=== PATIENT | male | born 1955 | race Caucasian/White ===

== ENCOUNTER 2017-09-29 13:54 | Emergency (ER) | payer SELFPAY ==
[~2017-09-29] VITALS: Ht 190.5 cm; Wt 61.4 kg
[2017-09-29 14:02] VITALS: TEMP 98.1
[2017-09-29] MEDS ORDERED: PRINIVIL2.5 MG PO (14:49)
[2017-09-29] MEDS ORDERED: NEURONTIN600 MG/TAB PO (14:50)
[2017-09-29] MEDS ORDERED: NORCO 325 MG-101 TAB PO (14:50)
[2017-09-29] MEDS ORDERED: TAPAZOLE5 MG PO (14:51)
[2017-09-29] MEDS ORDERED: PERCOCET 325 MG1 TA2 PO (17:25)
[2017-09-29] MEDS ORDERED: CEPHALEXIN500 M1 PO (17:25)
[2017-09-29 17:41] VITALS: BP 129/88; PULSE 72
== END 2017-09-29 17:49 | disposition home or self-care (01) ==
LOC: COL.ER 13:54
DX: S62.300A Unspecified fracture of second metacarpal bone, right hand, initial encounter for closed fracture (principal); S63.270A Dislocation of unspecified interphalangeal joint of right index finger, initial encounter; S61.211A Laceration without foreign body of left index finger without damage to nail, initial encounter; I10 Essential (primary) hypertension; W23.0XXA Caught, crushed, jammed, or pinched between moving objects, initial encounter; Y92.89 Other specified places as the place of occurrence of the external cause
CPT/HCPCS: Q4021; Q4050

== ENCOUNTER 2023-03-03 21:54 | Inpatient (IN) | payer MEDICARE, OTHER ==
[~2023-03-03] VITALS: Ht 185.4 cm; Wt 69.2 kg
[2023-03-03] VITALS (42 sets, daily range): O2SAT 84–100
--- NOTE | 2023-03-03 21:52 | NUR ---
REPORT RECEIVED FROM ARCADIO VELASQUEZ. PATIENT WILL BE TRANSFERRING FROM [facility] VIA EMS, INTUBATED AND ON PROPOFOL.
[~2023-03-03 21:54] MED LIST: CEPHALEXIN500 M1 PO; NORCO 325 MG-101 TAB PO; PERCOCET 325 MG1 TA2 PO; PRINIVIL2.5 MG PO; TAPAZOLE5 MG PO
--- NOTE | 2023-03-03 22:54 | NUR ---
PATIENT ARRIVED IN THE ICU AT 2253. PATIENT WAS SLIGHTLY AGITATED. THIS NURSE STARTED FENTANYL DRIP AND CYNDI [employer]ENN[employer]OT[employer] AGENT INSERTED GARCIA CATHETER. EMS HAD STARTED SECOND INT SITE EN ROUTE. PATIENT HAD DEFICATED IN HIS BRIEF AND WAS CHANGED, ASSESSED AND REPOSITIONED. NIKOLAI HUSSEIN AT BEDSIDE TO PLACE ORDERS, TALK TO FAMILY AND ASSESS PATIENT.
[2023-03-04] VITALS (1115 sets, daily range): BP systolic 79–132; BP diastolic 58–94; PULSE 56–107; TEMP 97.5–98; O2SAT 62–100
[2023-03-04] MEDS ORDERED: PRIL40 PO (00:56)
[2023-03-04] MEDS ORDERED: REGLAN 10MG10 MG/TAB PO (00:56)
[2023-03-04] MEDS ORDERED: LIPITOR 10MG10 MG PO (00:57)
--- NOTE | 2023-03-04 01:02 | NUR ---
PT ARRIVED AT THIS TIME PER EMS. SWITCHED TO VENTILATOR PER CHARTED SETTINGS. NO COMPLICATIONS.
[2023-03-04 01:27] LABS: COLLECTION METHOD CLEAN CATCH
[2023-03-04 01:34] LABS: BASO % 0.2 % (0.0-2.0); EOS % 0.1 % (0.0-4.0); GRAN # 8.8 K/mm3 (1.4-6.5); GRAN % 81.9 % (42.2-75.2); HEMATOCRIT 30.7 % (42.0-52.0); HEMOGLOBIN 10.4 g/dl (13.5-18.0); LYMPH % 9.1 % (20.0-51.0); MEAN CELL VOLUME 109 fl (80.0-100.0); MEAN CORPUSCULAR HEMOGLOBIN 37 pg (27-31); MEAN CORPUSCULAR HGB CONC 34 g/dl (33.0-37.0); MEAN PLATELET VOLUME 10.7 fl (7.4-10.4); MONO # 0.9 K/mm3 (0.1-0.6); MONO % 8.1 % (1.7-9.3); PLATELET COUNT 232 K/mm3 (130-400); RED BLOOD COUNT 2.83 M/mm3 (4.20-5.60); REDCELL DISTRIBUTION WIDTH-CV 14.7 % (11.5-14.5)
[2023-03-04 01:37] LABS: PH 5.5 (5.0-8.5); URINE APPEARANCE Cloudy (CLEAR/HAZY); URINE BLOOD TRACE-INTACT (NEGATIVE); URINE COLOR Amber (YELLOW); URINE GLUCOSE Negative (NEGATIVE); URINE KETONE 1+ (NEGATIVE); URINE NITRATE Positive (NEGATIVE); URINE PROTEIN(semi-quant) TRACE (NEGATIVE)
[2023-03-04 01:44] LABS: AMORPHOUS CRYSTAL Present (NOT PRESENT); URINE BACTERIA Occasional /hpf (NONE SEEN); URINE WBC None Seen /hpf (0-2)
[2023-03-04 01:50] LABS: ALBUMIN 1.4 gm/dL (3.4-4.8); ALKALINE PHOSPHATASE 93 U/L (40-150); ANION GAP 7 mmol/L (7-16); AST,SGOT 37 U/L (5-34); BLOOD UREA NITROGEN 15 mg/dL (8-26); CALCIUM 7.4 mg/dL (8.4-10.2); CARBON DIOXIDE 22 mmol/L (23-31); CHLORIDE 114 mmol/L (98-107); GLUCOSE 126 mg/dL (70-99); MAGNESIUM 1.9 mg/dL (1.6-2.6); PHOSPHOROUS 3.8 mg/dL (2.3-4.7); POTASSIUM 3.5 mmol/L (3.5-4.5); SODIUM 143 mmol/L (136-145)
[2023-03-04 01:57] LABS: ALANINE AMINOTRANSFERASE < 6 U/L (0-55); TROPONIN-I 0.032 ng/mL (0.00-0.033)
[2023-03-04 02:15] LABS: CREATININE, serum 0.84 mg/dL (0.72-1.25)
[2023-03-04] MEDS ORDERED: B COMPLEX #11 TA1 PO (02:45)
[2023-03-04] MEDS ORDERED: VITAMIN D31000 I1 PO (02:46)
[2023-03-04] MEDS ORDERED: ZOFRAN 4MG T4 MG/TAB PO (02:56)
--- NOTE | 2023-03-04 03:20 | NUR ---
@ 0215 advanced ETT FROM TO @ [facility] PER JOVITA SMALL APRN
[2023-03-04 03:28] LABS: ARTERIAL BLOOD GAS BASE EXCESS -1.5 (-2-2); ARTERIAL BLOOD GAS HCO3 21.3 meq/L (22-26); ARTERIAL BLOOD GAS PO2 71.3 mmHg (80-100); ARTERIAL BLOOD GAS pH 7.47 (7.35-7.45)
[2023-03-04 03:29] LABS: ARTERIAL BLD GAS O2 SATURATION 94.7 % (92-100)
--- NOTE | 2023-03-04 05:00 | NUR ---
PATIENT HAS BEEN INTUBATED AND SEDATED FOR LESS THAN 24 HOURS. PATIENT DOES NOT MEET SEDATION VACATION CRITERIA.
[2023-03-04 05:22] LABS: ARTERIAL BLD GAS O2 SATURATION 97.7 % (92-100); ARTERIAL BLD GAS TCO2 CT 22.5; ARTERIAL BLOOD GAS BASE EXCESS -2.2 (-2-2); ARTERIAL BLOOD GAS HCO3 21.5 meq/L (22-26); ARTERIAL BLOOD GAS PO2 104.5 mmHg (80-100); ARTERIAL BLOOD GAS pH 7.43 (7.35-7.45)
--- NOTE | 2023-03-04 06:30 | NUR ---
Report received from ARCADIO Chávez; patient currently resting in bed on ventilator and sedated. Patient has fent and prop running through a peripheral line for sedation, as well as a banana bag and potassium through another peripheral line. Patient has an ET and NG tube in place, as well as a White catheter. No other lines or tubes are in place. Patient is stable and patient's vital signs are within normal limits.
--- NOTE | 2023-03-04 06:59 | NUR ---
68 yo male admitted for further care and management of acute respiratory failure and sepsis of unclear etiology but possibly from a pulmonary source. ht 185.42 cm wt 61.7 kg SCr 0.98 with estimated CrCl ~55 ml/min half life 11.7 hours Plan: Will give an initial loading dose of vancomycin 1250 mg x1 (20.3 mg/kg); followed by a maintenance regimen of vancomycin 1000 mg q12h to target a goal trough of 15-20 mcg/ml. Will follow patient's renal function, micro data, and vancomycin levels as indicated to assess for any necessary changes to the regimen. Thank you for this dosing consult.
--- NOTE | 2023-03-04 09:15 | NUR ---
Patient eyes opened spontaneously with repositioning while working with PT. Squeezed therapists hand on the right but not the left. Patient would not follow any commands for this nurse during the assessment. Tolerating ventilator well and VS stable at this time.
--- NOTE | 2023-03-04 10:35 | NUR ---
SW attempted to contact ROSALIO Wu [phone] due to pt being intabated, did not leave message
--- NOTE | 2023-03-04 13:30 | NUR ---
Dr. Dietz attempted to place a central line in the right jugular. He was unsuccessful and Dr. Aocsta was called to place a line. A left subclavian was placed and position was confirmed via xray. Patient tolerated procedure well. Will continue to monitor.
--- NOTE | 2023-03-04 14:45 | NUR ---
Patient was initiated on levophed at 0.1 mcg/kg/min for hypotension. HR running in the 70's prior to initiation. Within a few minutes HR decreased to the upper 40's. Levophed was placed on standby. HR increased back to basline after stopping levophed. Re-started levophed at 0.01 mcg/kg/min and HR maintained in the 60's. Discussed with Dr. Miller and will keep at this dosage as long as BP tolerates. Will increase dosage if needed per protocol.
--- NOTE | 2023-03-04 17:00 | NUR ---
Sedation vacation not done at this particular time as it was done earlier in the day; patient was able to follow some commands.
--- NOTE | 2023-03-04 22:55 | NUR ---
PATIENT IS TOLERATING THE VENTILATOR WELL AND DOES NOT APPEAR TO BE IN DISTRESS OR DISCOMFORT. NG TUBE PATENT AND ON LOW INTERMITTENT SUCTION. ET TUBE AND GARCIA CATHETAR PATENT, NONVIOLENT RESTRAINTS ENFORCED APPROPRIATELY. PITTING EDEMA NOTED TO EXTREMITIES. PEDAL PULSES REQUIRED DOPPLER TO LOCATE. STAGE 2 PRESSURE WOUND ON RIGHT BUTTOCKS WITH GENERALIZED REDNESS ON COCCYX. BED IN LOW POSITION AND PATIENT IN OBSERVABLE AREA.
[2023-03-05] VITALS (1198 sets, daily range): BP systolic 72–118; BP diastolic 48–77; PULSE 51–84; TEMP 97–98.7; O2SAT 84–100
--- NOTE | 2023-03-05 05:01 | NUR ---
SEDATION BEING WEANED OFF DUE TO WEANING TRIAL.
[2023-03-05 05:38] LABS: BASO % 0.2 % (0.0-2.0); GRAN # 11.8 K/mm3 (1.4-6.5); GRAN % 85.5 % (42.2-75.2); LYMPH # 1.1 K/mm3 (1.2-3.4); LYMPH % 7.7 % (20.0-51.0); MEAN CELL VOLUME 111 fl (80.0-100.0); MEAN CORPUSCULAR HGB CONC 32 g/dl (33.0-37.0); MEAN PLATELET VOLUME 10.8 fl (7.4-10.4); MONO # 0.8 K/mm3 (0.1-0.6); MONO % 5.6 % (1.7-9.3); PLATELET COUNT 284 K/mm3 (130-400); RED BLOOD COUNT 2.41 M/mm3 (4.20-5.60)
[2023-03-05 05:44] LABS: HEMATOCRIT 26.7 % (42.0-52.0); HEMOGLOBIN 8.6 g/dl (13.5-18.0); MEAN CORPUSCULAR HEMOGLOBIN 36 pg (27-31)
[2023-03-05 05:56] LABS: ALBUMIN 1.3 gm/dL (3.4-4.8); ALKALINE PHOSPHATASE 81 U/L (40-150); ANION GAP 7 mmol/L (7-16); AST,SGOT 20 U/L (5-34); BILIRUBIN,TOTAL 1.5 mg/dL (0.2-1.2); BLOOD UREA NITROGEN 19 mg/dL (8-26); CALCIUM 7.1 mg/dL (8.4-10.2); CARBON DIOXIDE 19 mmol/L (23-31); CHLORIDE 114 mmol/L (98-107); CREATININE, serum 0.83 mg/dL (0.72-1.25); GLUCOSE 214 mg/dL (70-99); MAGNESIUM 1.8 mg/dL (1.6-2.6); PHOSPHOROUS 3.7 mg/dL (2.3-4.7); POTASSIUM 4.2 mmol/L (3.5-4.5); SODIUM 140 mmol/L (136-145); TOTAL PROTEIN 4.5 gm/dL (6.2-8.1)
[2023-03-05 06:00] LABS: ALANINE AMINOTRANSFERASE < 6 U/L (0-55)
--- NOTE | 2023-03-05 09:14 | NUR ---
ironworker apprentice called pt's , Skye [phone] due to patient being intubated. Skye provided that they live together in [place]. He sees Dr. De León and obtains medications from [facility] with no difficulties. Pt has a dented walker at home spouse reports and a cane. He was previosuly independent with ADLS, but had increased weakness Skye reports. Pt does not have a DPOA-HC, but Skye would like to complete one. OZZY advised she cannot at this time due to patient being intubated. OZZY provided her number in the event she stops by and he is extubated and can complete a DPOA-HC appropriately. Skye provided her daughter, Lara's number as [phone] to communicate with her when she stops by. Discharge Plan: [facility]
--- NOTE | 2023-03-05 09:29 | NUR ---
INSERTED ETT TO [address] TANNER
[2023-03-05] MEDS ORDERED: PLAVIX 75MG TAB75 MG PO (09:59)
[2023-03-05 10:08] LABS: ARTERIAL BLD GAS O2 SATURATION 98.2 % (92-100); ARTERIAL BLD GAS TCO2 CT 22.2; ARTERIAL BLOOD GAS BASE EXCESS -1.7 (-2-2); ARTERIAL BLOOD GAS HCO3 21.3 meq/L (22-26); ARTERIAL BLOOD GAS PCO2 29.9 mmHg (35-45); ARTERIAL BLOOD GAS PO2 109.9 mmHg (80-100); ARTERIAL BLOOD GAS pH 7.47 (7.35-7.45)
--- NOTE | 2023-03-05 14:44 | NUR ---
UNABLE TO GET TO PT ROOM TO CHECK VENT DUE TO ER PT CARE
--- NOTE | 2023-03-05 15:41 | NUR ---
WHILE APPLYING PT NICOTINE PATCH DAUGHTER STATED HE HAS ALWAYS REFUSED THE NICOTINE PATCH STATES IT MAKES HIM SICK. UPDATED DR. COTTON NICOTINE PATCH DC'D
[2023-03-06] VITALS (1246 sets, daily range): BP systolic 75–131; BP diastolic 47–88; PULSE 53–98; TEMP 97.7–98.9; O2SAT 77–100
--- NOTE | 2023-03-06 04:30 | NUR ---
0430: FENTANYL AND DIPRIVAN TURNED OFF PER ORDER TO ATTEMPT EXTUBATION THIS AM.
--- NOTE | 2023-03-06 05:40 | NUR ---
PT AWAKE AND VISIBLY AGITATED.
[2023-03-06 05:48] LABS: BASO % 0.1 % (0.0-2.0); GRAN % 89.5 % (42.2-75.2); LYMPH # 0.6 K/mm3 (1.2-3.4); LYMPH % 5.4 % (20.0-51.0); MEAN CELL VOLUME 107 fl (80.0-100.0); MEAN CORPUSCULAR HGB CONC 34 g/dl (33.0-37.0); MEAN PLATELET VOLUME 10.5 fl (7.4-10.4); MONO # 0.5 K/mm3 (0.1-0.6); PLATELET COUNT 243 K/mm3 (130-400); RED BLOOD COUNT 2.52 M/mm3 (4.20-5.60); REDCELL DISTRIBUTION WIDTH-CV 14.6 % (11.5-14.5)
[2023-03-06 05:50] LABS: HEMOGLOBIN 9.2 g/dl (13.5-18.0); MEAN CORPUSCULAR HEMOGLOBIN 37 pg (27-31)
[2023-03-06 06:05] LABS: ALBUMIN 1.4 gm/dL (3.4-4.8); BILIRUBIN,TOTAL 1.4 mg/dL (0.2-1.2); CALCIUM 7.3 mg/dL (8.4-10.2); CREATININE, serum 0.75 mg/dL (0.72-1.25); MAGNESIUM 2.1 mg/dL (1.6-2.6); PHOSPHOROUS 2.8 mg/dL (2.3-4.7); POTASSIUM 3.9 mmol/L (3.5-4.5); TOTAL PROTEIN 4.7 gm/dL (6.2-8.1)
--- NOTE | 2023-03-06 06:12 | NUR ---
0615 : PT EXTUBATED TO NONREBREATHER MASK AT 5L AFTER HE GOT A HOLD OF HIS RAMOS AND PULLED ET TUBE TO 21 CM. VSS, SR AT 79, SATS AT 100%, RESP RATE =14. VV=343/85. PT FOLLOWS SIMPLE COMMANDS AND IS DOING WELL. DR OCHOA NOTIFIED AT THIS TIME. GAVE ORDER TO GET ABG AT [id number].
--- NOTE | 2023-03-06 06:23 | NUR ---
ADDENDUM TO 0615 NOTE: SEDATION HAD BEEN OFF SINCE 429 AND PT WAS FOLLOWING SIMPLE COMMANDS.
--- NOTE | 2023-03-06 06:24 | NUR ---
RT CALLED @0601 DUE TO PTT SELF-EXTUBATION. AT ARRIVAL PT HAD ETT CUFF INBETWEEN HIS TEETH WITH RN BAGGING PT, RT ADVISED TO PULL TUBE. PT IS IN NO VISABLE DISTRESS, ABLE TO SPEAK, FRANCISCO WELL ON 5L OXYMASK. PT REFUSED TO RELEASE ETT FROM LEFT HAND, RN AWARE AND DAYSHIFT RT NOTIFED.
--- NOTE | 2023-03-06 07:00 | NUR ---
Bedside report received from ARCADIO Serrano. Pt has been extubated since approx. 0600 and has been tolerating well. Currently on 3L oxymask. Pt alert but not oriented; able to follow commands. LR infusing at 63 ml/hr through left subclavian TLC. FC to dependent drainage. Call light in reach and bed alarm on.
--- NOTE | 2023-03-06 08:45 | NUR ---
Pt incontinent of liquid stool. Complete bed bath given and linens changes. During bath pt became agitated and pulled out NG tube. Dr. Quiroz aware and okay to leave out. Pt alert but not oriented; believes it is 1998. Pt frequently becomes restless and pulls at lines and tubes.
[2023-03-06 09:03] LABS: CLOSTRIDIUM DIFF A/B NEG
[2023-03-06] MEDS ORDERED: NEURONTIN600 MG/TAB PO ×2 (13:25)
[2023-03-06] MEDS ORDERED: ZOFRAN ODT4 MG PO (13:53)
[2023-03-06] MEDS ORDERED: QUALITY CHOICE1 T22 PO (13:54)
--- NOTE | 2023-03-06 14:30 | NUR ---
Request from primary RN to discuss reintubation with patient's & daughter. Patient self-extubated this morning & has now had a rapid decline. Dr. Dietz was called by ARCADIO Jo with orders to reintubate. Patient & his family have made comments about not reintubating, patient stable, so taking time to ensure understanding of patient's condition & order for reintubation. Patient's daughter, Lisette, at bedside. This RN & daughter leave patient room & proceed to consultation room to call patient's , Skye. Updated family on current condition & order for reintubation. Discussed short term aggressive interventions (ventilator) to stabilize the patient. Patient's daughter states that she knows that the patient would not want to be on a long-term ventilator or to have a trach. Discussed what not reintubating would mean for the patient to include . stated that she was "not ready to let him go." Ultimately, the & daughter agreed to move forward with intubation with the hope of recovery, but if unable to wean they would not want a trach/PEG for the patient. Offered to give family some time to talk alone before making a final decision. stated that she needed to return to work & get off the phone while daughter wanted to talk with the patient before reintubation. Daughter proceeds into the room to update her father. Patient states that he does not want reintubated. This RN in room to talk with the patient & daughter. Patient oriented to self, place & president, but not oriented to time. Discussed need for reintubation with patient. Initially, he was reluctant, but his daughter able to convince him to proceed. Daughter requested that we ask the provider about restarting his home pain medication, as the patient has become more anxious without it. Request passed along to ARCADIO Jo. Consent for intubation obtained from daughter at bedside.
--- NOTE | 2023-03-06 14:35 | NUR ---
BECCA RN DISCUSSED WITH PT'S AND DAUGHTER IF THEY WOULD WANT HIM TO BE RE-INTUBATED. INFORMED THAT DR. TANNER IS RECOMMENDING THAT HE BE RE-INTUBATED AT THIS TIME. PT'S AND DAUGHTER ULTIMATELY DECIDED THEY WOULD LIKE PT INTUBATED AGAIN. DR. TANNER AND ANESTHESIA NOTIFIED. CONSENT SIGNED BY PT'S DAUGHTER.
--- NOTE | 2023-03-06 15:00 | NUR ---
1500- Pt being prepped for intubation by this nurse, THANH Lopez, THANH Pennington, and Kathy WHEEL PRESSER. 1505- Induction meds administered by THANH Pennington; propofol, succinylcholine, precedex, and phenylephrine. 1508- 7.5 ETT placed 23cm at the lips; positive color change and bilateral breath sounds verified by this nurse. 1515- Propofol and fentanyl gtt initiated for sedation. 1520- OG tube place 60cm at the lips; clamped. 1558- Bilateral soft wrist restraints placed on pt for line management. 1600- ETT and OG placement verified by x-ray.
[2023-03-06 16:15] LABS: ARTERIAL BLD GAS O2 SATURATION 95.1 % (92-100); ARTERIAL BLD GAS TCO2 CT 20.3; ARTERIAL BLOOD GAS BASE EXCESS -3.7 (-2-2); ARTERIAL BLOOD GAS HCO3 19.4 meq/L (22-26); ARTERIAL BLOOD GAS PCO2 28.9 mmHg (35-45); ARTERIAL BLOOD GAS PO2 76.8 mmHg (80-100); ARTERIAL BLOOD GAS pH 7.45 (7.35-7.45)
--- NOTE | 2023-03-06 17:30 | NUR ---
OG ADVANCED FROM 60CM TO 70CM PER RADIOLOGIST RECOMMENDATION.
--- NOTE | 2023-03-06 20:00 | NUR ---
PT RESTING IN BED IN LOWEST POSITION WITH CALL LIGHT IN REACH. PT ABLE TO OPEN L EYE TO PHYSICAL STIMULATION AND NOTED TO GRIMACE WITH ORAL CARE, BUT UNABLE TO FOLLOW COMMANDS AT THIS TIME. VSS. IV MEDICATIONS INFUSING PER REPORT/ MAR. ALL ASSESSMENTS COMPLETED AND NEEDS ANTICIPATED.
[2023-03-07] VITALS (1100 sets, daily range): BP systolic 87–138; BP diastolic 45–90; PULSE 45–81; TEMP 97.1–98.8; O2SAT 78–100
--- NOTE | 2023-03-07 03:08 | NUR ---
TUBE FEEDING STOPPED AT THIS TIME 4 HOURS PRIOR TO WEANING TRIAL.
--- NOTE | 2023-03-07 05:04 | NUR ---
PT STARTING WEANING TRIAL AT 0700. TITRATING TO DC SEDATION BY 0530.
[2023-03-07 05:31] LABS: ARTERIAL BLD GAS O2 SATURATION 96.6 % (92-100); ARTERIAL BLD GAS TCO2 CT 21.7; ARTERIAL BLOOD GAS BASE EXCESS -2.4 (-2-2); ARTERIAL BLOOD GAS HCO3 20.7 meq/L (22-26); ARTERIAL BLOOD GAS PCO2 30.1 mmHg (35-45); ARTERIAL BLOOD GAS PO2 87.2 mmHg (80-100); ARTERIAL BLOOD GAS pH 7.46 (7.35-7.45)
[2023-03-07 05:54] LABS: BASO % 0.2 % (0.0-2.0); GRAN # 8.1 K/mm3 (1.4-6.5); LYMPH # 0.7 K/mm3 (1.2-3.4); LYMPH % 7.5 % (20.0-51.0); MEAN CELL VOLUME 109 fl (80.0-100.0); MEAN CORPUSCULAR HGB CONC 34 g/dl (33.0-37.0); MEAN PLATELET VOLUME 10.5 fl (7.4-10.4); MONO # 0.6 K/mm3 (0.1-0.6); PLATELET COUNT 230 K/mm3 (130-400); RED BLOOD COUNT 2.35 M/mm3 (4.20-5.60); REDCELL DISTRIBUTION WIDTH-CV 14.8 % (11.5-14.5)
[2023-03-07 05:57] LABS: HEMATOCRIT 25.7 % (42.0-52.0); HEMOGLOBIN 8.6 g/dl (13.5-18.0); MEAN CORPUSCULAR HEMOGLOBIN 37 pg (27-31)
[2023-03-07 06:12] LABS: CALCIUM 7.2 mg/dL (8.4-10.2); CREATININE, serum 0.73 mg/dL (0.72-1.25); MAGNESIUM 2.1 mg/dL (1.6-2.6); POTASSIUM 3.4 mmol/L (3.5-4.5)
--- NOTE | 2023-03-07 10:30 | NUR ---
1030 - Dr. Dietz at patient's bedside talking with patient's , Yaritza. Patient's able to provide a limited medical history on the patient. Dr. Dietz provided a clinical update, diagnostic tests planned for today & consults with rationale. Long discussion on respiratory status & potential need for ventilator with poor prognosis. express understanding, but verbalized that it was a lot of information to take in. 1050 - This RN & patient's proceed to family conference room. Yaritza put her daughter, Kaylen, on video call. RN provided update to daughter with present as discussed at bedside by Dr. Dietz. Discussed potential need for ventilator with poor prognosis & if patient were to be intubated what long-term care would entail (trach likely with LTAC need). & daughter discussed their desire to continue to be aggressive with care & "not give up" referencing that the patient was "a fighter" all of his life. Requested a decision about the choice should the patient decline in respiratory status & both the & daughter agreed that a ventilator is the best option for the patient. Daughter currently lives in [place] & will arrive in [place] late Sunday. All questions answered. Patient's returned to room & echo was in progress, so she was taken to waiting room where she was planning to talk to the daughter. Both tearful; support offered. 1100 - Update provided to RN Shawn Villalobos 1105 - Update provided to Dr. Dietz via phone. Aware of the plan to proceed with ventilator should the patient decline. 1150 - Call to Dr. Connell's office to request recent visit notes & living will. Fax number provided.
--- NOTE | 2023-03-07 19:37 | NUR ---
BEDSIDE REPORT COMPLETED AND IV INFUSIONS AND TUBE FEEDING VERIFIED WITH VENT SETTINGS STATED IN REPORT. PT RESTING AT THIS TIME WITH EYES CLOSED AND VSS. NO NEEDS ANTICIPATED AT THIS TIME.
--- NOTE | 2023-03-07 20:00 | NUR ---
PT RESTING IN BED AND ASSESSMENTS COMPLETED AT THIS TIME. VSS, BED IN LOW POSITION, CALL LIGHT WITHIN REACH, AND RAYMOND CARE COMPLETED WITH LOOSE BM AT THIS TIME WITH STAFF X2. NO ADDITIONAL NEEDS ANTICIPATED AT THIS TIME.
--- NOTE | 2023-03-07 22:52 | NUR ---
RESTRAINT FLOWSHEET NOTED TO BE COMPLETED. CALLED BRAIN ANYI DUNCAN TO CONFIRM ORDER FOR RESTRAINTS REMAINS ACTIVE AT THIS TIME. INTERVENTION CONTINUED.
[2023-03-08] VITALS (1083 sets, daily range): BP systolic 114–148; BP diastolic 63–102; PULSE 47–82; TEMP 97–99; O2SAT 74–100
--- NOTE | 2023-03-08 02:09 | NUR ---
AWAITING RADIOLOGY TO COMPLETE AM CHEST XRAY PRIOR TO FINISHING TITRATING OFF SEDATION AGENTS.
[2023-03-08 06:44] LABS: CALCIUM 7.6 mg/dL (8.4-10.2); CREATININE, serum 0.7 mg/dL (0.72-1.25); POTASSIUM 3.8 mmol/L (3.5-4.5)
--- NOTE | 2023-03-08 06:47 | NUR ---
CPAP TRIAL 5/5 STARTED FOR 1 HOUR THEN ABG. TOLERATING WELL. NIF -[id number]
[2023-03-08 07:07] LABS: ARTERIAL BLD GAS O2 SATURATION 96.8 % (92-100); ARTERIAL BLD GAS TCO2 CT 19.3; ARTERIAL BLOOD GAS BASE EXCESS -3.9 (-2-2); ARTERIAL BLOOD GAS HCO3 18.5 meq/L (22-26); ARTERIAL BLOOD GAS PCO2 25.7 mmHg (35-45); ARTERIAL BLOOD GAS PO2 86.4 mmHg (80-100); ARTERIAL BLOOD GAS pH 7.48 (7.35-7.45)
--- NOTE | 2023-03-08 18:52 | NUR ---
0900 PT EXTUBATION SUCCESSFUL PT TOLERATED WELL. PT PLACED ON 5L OXYMASK. 1200 PT TOLERATING BEING OFF VENT. PT PLACED ON 3L NC. BEDSIDE SWALLOW TEST DONE AT THIS TIME WITH THIN FLUIDS PT TOLERATED WITHOUT TROUBLE OR COUGHING. PO MEDICATIONS ADMINISTERED PT ABLE TO TAKE WHOLE WITHOUT ISUUES.
--- NOTE | 2023-03-08 19:00 | NUR ---
BEDSIDE REPORT RECEIVED FROM ARCADIO ALEJANDRE. PATIENT RESTING IN BED WITH CALL LIGHT IN HAND, BED IN LOW POSITION, AND ALL QUESTIONS ANSWERED AT THIS TIME. VSS AND NO NEEDS VOICED OR ANTICIPATED AT THIS TIME.
--- NOTE | 2023-03-08 20:00 | NUR ---
PT RESTING IN BED WITH CALL LIGHT IN HAND. REPORTS PAIN OF 1 TO TIP OF PENIS AND REPORTS IT IS A BURN/ STING. EDUCATED THAT GARCIA CATHETERS CAN CAUSE DISCOMFORT. TOPICAL PAIN MEDS TO BE ADMINISTERED PER MAY. ASSESSMENTS COMPLETED AT THIS TIME. PT ORIENTED TO PERSON, PLACE, SITUATION TO HOSPITAL/ LOCATION BUT REORIENTATION FOR PLAN AND CARES, AND UNABLE TO STATE DATE AT THIS TIME. BED IN LOW POSITION, CARE PLAN REVIEWED, AND ALL QUESTIONS ANSWERED AT THIS TIME. PT REMINDED AND ENCOURAGED TO USE CALL LIGHT FOR ANY NEEDS.
[2023-03-09] VITALS (522 sets, daily range): BP systolic 126–162; BP diastolic 75–97; PULSE 66–98; TEMP 97.5–100.3; O2SAT 78–100
[2023-03-09 05:02] LABS: CALCIUM 7.6 mg/dL (8.4-10.2); CREATININE, serum 0.73 mg/dL (0.72-1.25); POTASSIUM 3.4 mmol/L (3.5-4.5)
--- NOTE | 2023-03-09 09:01 | NUR ---
RECEIVED REPORT FROM NIGHTSHIFT RNITALO. PATIENT RESTING IN BED WITH EYES CLOSED AT THIS TIME. BED IN A LOW POSITION. CALL LIGHT WITHIN REACH.
--- NOTE | 2023-03-09 09:04 | NUR ---
HEAD TO TOE ASSESSMENT COMPLETED. PATIENT IS ALERT AND ORIENTED IN BED. ABLE TO TAKE MEDICATIONS WITH SIPS OF WATER WITHOUT A PROBLEM. PUPILS EQUAL AND REACTIVE. HEART SOUNDS REGULAR WITH S1 AND S2 NOTED. LUNG SOUNDS DIMINISHED BILATERALLY IN UPPER AND LOWER LOBES. BOWEL SOUNDS ACTIVE IN ALL QUADRANTS. PATIENT HAS GARCIA AND RECTAL TUBE IN PLACE. PATIENT HAS PITTING EDEMA BILATERALLY TO UPPER AND LOWER EXTREMITIES. PEDAL PULSES AUDIBLE WITH DOPPLER. RADIAL PULSES PALPABLE. PATIENT HAS STAGE II SKIN ULCER TO COCCYX. MEPILEX DRESSING CHANGED D/T SOILING. BREAKFAST TRAY ORDERED FOR PATIENT. BED IN A LOW POSITION. CALL LIGHT WITHIN REACH.
--- NOTE | 2023-03-09 10:40 | NUR ---
REPORT RECEIVED FROM ARCADIO GAMBINO IN ICU AT 1025 AND PT ON THE FLOOR APPROX 1040. PTS DAUGHTER AT BEDSIDE. PT ON 2L OXYMASK, HAS A GARCIA IN PLACE DRAINING RABIA URINE, AND A RECTAL TUBE WITH A MODERATE AMOUNT ON LIQUID STOOL IN BAG. DURING REPORT ICU NURSE NOTIFIED THIS NURSE THAT RECTAL TUBE "LEAKS". RECTAL TUBE ADVANCED SLIGHTLY FURTHER INTO PTS RECTUM AND 10MLS ADDED TO BALLON. PT IS A&OX4 AND DENIES PAIN OR SHORTNESS OF BREATH AT THIS TIME. PER REPORT 0900 GABAPENTIN NOT GIVEN DUE TO IT NOT BEING STOCKED IN ICU. PT HAS +3 PITTING EDEMA TO BILATERAL LOWER EXTREMITIES AND +1 PITTING TO UPPER EXTREMITIES. PT HAS A TRIPLE LUMEN SUBCALVIAN IJ IN PLACE, ALL 3 LUMENS FLUSH WELL WITH BLOOD RETURN. NORMAL SALINE CONNECTED AND BROUGHT UP FROM ICU. PT HAS A STAGE 2 PRESSURE INJURY TO COCCY THAT APPEARS TO BE IN A STAGE OF HEALING, SKIN ISNT INTACT. PT CLEANED, BARRIER CREAM AND MEPILEX REPLACED. PTS HANDS ARE COLD AND SPO2 READING AT 82-85% ON 2L OXYMASK, OXUGEN INCREASED TO 4L OXYMASK AND PT NOT GETTING OVER 90%. RESPIRATORY CALLED AND PT PLACED ON BIPAP. PT REPORTS DISCOMFORT WITH GARCIA AND TOPICAL LIDOCAINE OINTMENT APPLIED. PT DENIES NEEDS AT THIS TIME. BED IN LOWEST POSITION, CALL LIGHT IN REACH, BED ALARM ON
--- NOTE | 2023-03-09 11:00 | NUR ---
PT OFFERED LUNCH AND DENIES WANTING ANYHTING. THIS NURSE NOTIFIED PT OF [employer] ON THE FLOOR AND REQUESTING CHOCOLATE PUDDING AND JELLO. FOOD AT BEDSIDE AND DAUGHTER ASSISTING WITH EATING
--- NOTE | 2023-03-09 11:07 | NUR ---
REPORT GIVEN TO BILLIE MEDICAL RN VIA PHONE AT 1022. PATIENT TRANSPORTED UP TO MEDICAL FLOOR VIA WHEELCHAIR TO ROOM 353 AT 1040.
--- NOTE | 2023-03-09 12:00 | NUR ---
DAUGHTER ASKING IF PT STILL NEEDS TO BE ON OXYMASK. BIPAP REMOVED AND PT PLACED ON 6L OXYMASK. SPO2 MONITOR PLACED ON PTS LEFT EAR AND READING 100% AT THIS TIME. OXYGEN TITRATED TO 3L AND PTS O2 STATS 95%. PT DENIES NEEDS AT THIS TIME.
--- NOTE | 2023-03-09 17:00 | NUR ---
PT OFFERED DINNER AND DENIES WANTING ANYTHING BUT CHOCOALTE ENSURES. ORDER PLACED
[2023-03-10] VITALS (8 sets, daily range): BP systolic 127–154; BP diastolic 69–96; PULSE 80–103; TEMP 97.4–99
[2023-03-10 08:19] LABS: CALCIUM 7.9 mg/dL (8.4-10.2); CREATININE, serum 0.7 mg/dL (0.72-1.25); POTASSIUM 3.6 mmol/L (3.5-4.5)
--- NOTE | 2023-03-10 08:30 | NUR ---
PT RESTING IN BED UPON ENTERING. ASSESSMENT DONE, PT DENIES PAIN AT THIS TIME. PT ON 6L OXYMASK AND DENIES SHORTNESS OF BREATH AT THIS TIME, O2 SATS 95%. GARCIA IN PLAC DRAINING RABIA URINE WITHOUT ISSUES. RECTAL TUBE IN PLACE BUT LEAKING. TUBE ADVANCED INTO PTS RECTUM AND PT REPOSITIONED. RECTAL TUBE BAG EMPTIED AND CHANGED. PT HAS A STAGE 2 COCCYX PRESSURE INJURY, SURROUNDING SKIN IN REDDENED WITH A SMALL AREA OF SKIN NOT INTACT. PT CLEANED, BARRIER CREAM AND MEPILEX APPLIED. LR RUNNING AT 63MLS/HR PER ORDER. PT HAS +3 BILATERAL LOWER EXTREMITY EDEMA, SKIN IS TAUT AND HAS A SHINY APPEARANCE, SKIN IS INTACT ON LEGS. PT HAS +2 BIALTERAL UPPER EXTREMITY EDEMA CONCENTRATED AROUND FORARMS. PTS SCROTUM IS SWOLLEN, PT DENEIS PAIN. PT DENIES BREAKFAST AND STATES THAT HE WILL WAIT FOR HIS FAMILY TO COME. BED IN LOWEST POSITION, CALL LIGHT IN REACH, BED ALARM ON
--- NOTE | 2023-03-10 12:19 | NUR ---
Data: Line Mover visit attempted during Line Mover rounds. Assessment: Patient declined Line Mover visit. Plan of Care: No Line Mover visit completed at this time. Chaplains will remain available to Patient if requested.
--- NOTE | 2023-03-10 15:00 | NUR ---
PTS FAMILY AT BEDSIDE ASKING IF IT WOULD BE OKAY TO ATTEMPT TO STAND OR AMBUALTE PT. PT STATING "I WANT TO TRY TO STAND". EARLY THIS AM PHYSICAL THERAPY AT BEDSIDE DOING IN BED EXERCISES ONLY DUE TO PT REFUSING AMBULATION AFTER BEING TIRED WITH IN BED EXERCISES. THIS NURSE NOTIFIED FAMILY THAT PT HAS NOT BEEN UP WITH PHYSICAL THERAPY TODAY DUE TO BEING WEAK. THIS NURSE NOTIFIED FAMILY OF NURSING STAFFS UNCOMFORT WITH ATTEMPTING TO STAND PT WHEN PT WAS NOT ABLE TO WITH PHYSICAL THERPAY, PT HASNT BEEN AMBUALTED SINCE LEAVING ICU, GARCIA AND RECTAL TUBE IN PLACE. FAMLILY NOTIFIED THAT THIS NURSE IS NOT COMFORTABLE WITH BEING THE FIRST PERSON TO GET PT UP WITH ALL THE EQUIPTMETN HE HAS IN ADDITION TO WEAKNESS. FAMILY VERBALIZED UNDERSTANDING.
--- NOTE | 2023-03-10 16:30 | NUR ---
UPON ENTERING TO START ZOSYN THIS NURSE NOTICED AND INCREASE IN PTS BILATERAL UPPER EXTREMITY SWELLING AND SCROTUM SWELLING. DR LUA CALLED AND NOTIFIED. PROVIDER ASKED THIS NURSE IF PT IS TAKING ENOUGH FLUIDS ORALLY AND THIS NURSE STATED THAT THE PT HAS BEEN DOING WELL WITH FLUIDS DO TO MED PASSES AND ENCOURAGEMENT. PROVIDER TOLD THIS NURSE TO HOLD FLUIDS AND CONTINUE WITH ORDERED ABX. PTS LUNG SOUNDS STILL DIMINSHED LIKE MORNING ASSESSMENT, NO CRACKELS OR NEW SOUNDS HEARD AT THIS TIME. PT DENIES PAIN OR SHORTNESS OF BREATH AT THIS TIME.
--- NOTE | 2023-03-10 21:00 | NUR ---
Patient resting in bed. Denies any pain or needs at this time. Assessment complete. IV fluses easily with good blood return in all 3 ports. Call light and personal items in reach. Bed in low position and bed alarm on.
[2023-03-10 21:17] LABS: CLOSTRIDIUM DIFF A/B NEG
[2023-03-11] VITALS (10 sets, daily range): BP systolic 134–150; BP diastolic 71–94; PULSE 86–90; TEMP 97.9–98.3
--- NOTE | 2023-03-11 05:40 | NUR ---
Patient resting in bed. Denies any pain at rest or needs at this time. Patient cleaned and repositioned. Call light and personal items in reach. Bed in low position and bed alarm on.
--- NOTE | 2023-03-11 08:00 | NUR ---
Patient is resting in bed, alert and oriented, daughter at the bedside, complains pain while repositioning. Assessment completed, tele in place, SR, No further needs at this time. Call light within reach.
--- NOTE | 2023-03-11 20:30 | NUR ---
Initial shift assessment done-denies pain, states doesnt want to take any more pills- explained what that where all for and did decide to take them with much encouragement, incontinent of loose/brown stool, cleaned up/repositioned, o2 at 6L/oxymask, HOB up, Tele on, has TLC cathter to left chest.
[2023-03-12] VITALS (13 sets, daily range): BP systolic 135–149; BP diastolic 70–87; PULSE 68–93; TEMP 97.1–98.4
--- NOTE | 2023-03-12 05:49 | NUR ---
No changes--very pleasant, VSS, Did have 3 loose/liquid stools this shift- cleaned up/repositioned/barrier cream applied.
[2023-03-12 08:16] LABS: ALBUMIN 1.3 gm/dL (3.4-4.8); BILIRUBIN,TOTAL 1.1 mg/dL (0.2-1.2); CALCIUM 8.1 mg/dL (8.4-10.2); CREATININE, serum 0.63 mg/dL (0.72-1.25); MAGNESIUM 1.8 mg/dL (1.6-2.6); PHOSPHOROUS 2.9 mg/dL (2.3-4.7); POTASSIUM 3.7 mmol/L (3.5-4.5); TOTAL PROTEIN 4.9 gm/dL (6.2-8.1)
--- NOTE | 2023-03-12 20:30 | NUR ---
Initial shift assessment done-- VSS, o2 at 8L/oxymask, alert/oriented x4, states brought him some [employer] for supper- was happy about that, refusing any snacks at this time, repositioned in bed, cleaned up of some incontinent stool- unable to get a specimen-- states will try to use the bedpan next time so we can get the specimen,,, did void 200cc marija urine per urinal.
[2023-03-13] VITALS (15 sets, daily range): BP systolic 90–142; BP diastolic 67–90; PULSE 85–136; TEMP 97.6–98.7
--- NOTE | 2023-03-13 02:45 | NUR ---
Pt called saying he felt SOB, resp 28/min, sats on 8L/oxymask 92%- resp called- will come and give treatment and assess.
--- NOTE | 2023-03-13 02:55 | NUR ---
Pt very SOB, getting 62% o2 sats 0n the 8L/oxymask, resp now here- CAT called, Brian PLASCENCIA called- coming stat
--- NOTE | 2023-03-13 03:00 | NUR ---
Brian urrutai at bedside- nurse workers' compensation claims supervisor here- resp here- orders for stat CXR, Bipap on- sats already coming up to 80% after 2-3 minutes
--- NOTE | 2023-03-13 03:15 | NUR ---
Orders for ABG,s, CXR, Bipap, Lasix 80mg IV, Metoprolol 2.5mg,potassium 40 meq, and magnesium sulfate -- pt feeling much better- vss,,97.6, 120/70, 98,20, 99 % on Bipap
[2023-03-13 03:20] LABS: ARTERIAL BLD GAS O2 SATURATION 97.5 % (92-100); ARTERIAL BLD GAS TCO2 CT 20.7; ARTERIAL BLOOD GAS BASE EXCESS -4.6 (-2-2); ARTERIAL BLOOD GAS HCO3 19.6 meq/L (22-26); ARTERIAL BLOOD GAS PCO2 33.2 mmHg (35-45); ARTERIAL BLOOD GAS PO2 101.1 mmHg (80-100); ARTERIAL BLOOD GAS pH 7.39 (7.35-7.45)
--- NOTE | 2023-03-13 06:23 | NUR ---
States feeling so so much better, VSS, did use urinal and voided 600cc clear yellow urine. remains on Bipap at fio2 85% with sats 99%
[2023-03-13 15:44] LABS: PERITONEAL -POLYMORPHONUCLEAR 81.2 % (0-25)
--- NOTE | 2023-03-13 17:04 | NUR ---
apartment maintenance worker spoke with spouse, Skye [phone] and Lisette gaxiola [phone] as they desire patient to transfer to a skilled care facility prior to patient staying with daughter. Skye and Lisette prefer [facility] [place] swing bed and/or [facility]. Skye does not want [facility] swing bed. Discharge plan: Swing bed or [facility] facility.
--- NOTE | 2023-03-13 19:30 | NUR ---
Patient resting in bed with family at bedside . Denies any pain at this time. Patient cleaned and turned. Assessment complete. Triple lumen in left subclavian flushes easily with good blood return from all ports. Call light and personal items in reach. Bed in low position and bed alarm on.
--- NOTE | 2023-03-13 19:59 | NUR ---
Patient remains stable. Has rested throughout day, arouses to voice and touch. Appetite low, drank a boost drink brought by daughter. Tolerating medications well. Patient's SpO2 noted to decrease below 90% by the time he is done taking medications with BiPAP off. Once BiPAP placed back on it increases to 95%. Patient denies increase in pain. Currently in bed with call light in reach and family at bedside.
--- NOTE | 2023-03-13 23:00 | NUR ---
Patient states he feels SOB with bipap on and keeps taking it off. Oxygen stating from 82-88% with bipap hovering over his mouth. Respiratory contacted and notified. Hospitalist ANYI Enciso contacted and updated on the patients situation. States she will come and see him. Chest X-ray and ABGs ordered.
[2023-03-13 23:36] LABS: ARTERIAL BLD GAS O2 SATURATION 84.8 % (92-100); ARTERIAL BLD GAS TCO2 CT 19.1; ARTERIAL BLOOD GAS BASE EXCESS -4.8 (-2-2); ARTERIAL BLOOD GAS HCO3 18.3 meq/L (22-26); ARTERIAL BLOOD GAS PCO2 27.4 mmHg (35-45); ARTERIAL BLOOD GAS PO2 50.7 mmHg (80-100); ARTERIAL BLOOD GAS pH 7.44 (7.35-7.45)
[2023-03-14] VITALS (1053 sets, daily range): BP systolic 74–1008; BP diastolic 51–92; PULSE 61–144; TEMP 95.9–99.9; O2SAT 54–100
--- NOTE | 2023-03-14 | NUR ---
Patient now on Arivo 60L and stating mid 90s. Transfering patient to ICU after chest CT and EKG
--- NOTE | 2023-03-14 00:32 | NUR ---
Called report to ARCADIO Miranda in ICU. Notified we will take him to CT then to ICU floor.
--- NOTE | 2023-03-14 00:45 | NUR ---
Patient taken to CT then to ICU with all patient belongings. Patient transferred on 15L using oxymask.
--- NOTE | 2023-03-14 01:07 | NUR ---
PATIENT ARRIVED VIA MEDICAL BED WITH MEDICAL RN AND ASSISTANT DIRECTOR OF ADMISSIONS. PATIENT IN ACUTE DISTRESS UPON ARRIVAL. ON 15 L OF O2 - INITIAL SPO2 WAS 58% UPON ARRIVAL TO THE UNIT. AIRVO PLACED IMMEDIATELY BY RT.
[2023-03-14 01:56] LABS: HEMATOCRIT 27.3 % (42.0-52.0); HEMOGLOBIN 8.7 g/dl (13.5-18.0); MEAN CELL VOLUME 111 fl (80.0-100.0); MEAN CORPUSCULAR HEMOGLOBIN 35 pg (27-31); MEAN CORPUSCULAR HGB CONC 32 g/dl (33.0-37.0); MEAN PLATELET VOLUME 10.4 fl (7.4-10.4); PLATELET COUNT 392 K/mm3 (130-400); RED BLOOD COUNT 2.47 M/mm3 (4.20-5.60); REDCELL DISTRIBUTION WIDTH-CV 14.8 % (11.5-14.5)
[2023-03-14 02:03] LABS: INR 1.5 (0.8-3.0); PROTHROMBIN TIME 16.3 SECONDS (9.7-12.8)
[2023-03-14 02:05] LABS: PARTIAL THROMBOPLASTIN TIME 26.6 SECONDS (26.0-37.0)
[2023-03-14 02:22] LABS: BAND 4 % (0-10); LYMPHOCYTE 3 % (20.0-51.0); NEUTROPHILS 91 % (42.0-75.2)
[2023-03-14 02:23] LABS: PLATELET ESTIMATE NORMAL (NORMAL)
[2023-03-14 02:24] LABS: CALCIUM 8.5 mg/dL (8.4-10.2); CREATININE, serum 0.77 mg/dL (0.72-1.25); POTASSIUM 4.1 mmol/L (3.5-4.5)
[2023-03-14 02:26] LABS: ARTERIAL BLD GAS O2 SATURATION 76.6 % (92-100); ARTERIAL BLD GAS TCO2 CT 20.4; ARTERIAL BLOOD GAS BASE EXCESS -6.4 (-2-2); ARTERIAL BLOOD GAS HCO3 19.2 meq/L (22-26); ARTERIAL BLOOD GAS PCO2 38.5 mmHg (35-45); ARTERIAL BLOOD GAS PO2 47.4 mmHg (80-100); ARTERIAL BLOOD GAS pH 7.32 (7.35-7.45)
--- NOTE | 2023-03-14 02:28 | NUR ---
Vancomycin Initial Dosing Pharmacy Note Ordering provider: Jose Quiroz MD Indication/duration: RLL infiltrate x 7 days. Relevant comorbidities: N/A LABS: SCr = 0.63 (Capped at 0.8) Recommendation: Will draw troughs and follow levels. Loading dose: 1.5 grams Maintenance dose: 1.25 grams every 12 hours Trough goal: 15-20 ug/mL
[2023-03-14 02:32] LABS: TROPONIN-I 0.517 ng/mL (0.00-0.033)
--- NOTE | 2023-03-14 05:03 | NUR ---
AT ABOUT 0230, PATIENT BEGAN DESATTING SIGNIFICANTLY EVEN WITH AIRVO AND BIPAP ATTEMPTS. PATIENT WENT INTO SVT MULTIPLE TIMES WHILE PROVIDER WAS AT BEDSIDE. 334 - ANESTHESIA WAS CONTACTED TO PERFORM AN EMERGENT INTUBATION 404 - AMIODARONE WAS STARTED 410 - ETT WAS PLACED SUCCESSFULLY 413 - NEOSYNEPHRINE WAS STARTED DUE TO HYPOTENSION 424 - SEDATION BEGAN INFUSING. IN THE MEANTIME, A GARCIA CATHETAR AND OG WERE PLACED (PLACEMENT CHECKED BY X-RAY) , NONVIOLENT RESTRAINTS WERE INITIATED, AND AN ARTTERIAL LINE WAS INSERTED BY ANESTHESIA.
--- NOTE | 2023-03-14 05:40 | NUR ---
NOT APPROPRIATE DUE TO AGITATION AND NEED FOR AN INCREASE IN SEDATION.
[2023-03-14 05:52] LABS: ARTERIAL BLD GAS O2 SATURATION 96.1 % (92-100); ARTERIAL BLD GAS TCO2 CT 21.2; ARTERIAL BLOOD GAS HCO3 19.9 meq/L (22-26); ARTERIAL BLOOD GAS PCO2 40.9 mmHg (35-45); ARTERIAL BLOOD GAS PO2 90.7 mmHg (80-100); ARTERIAL BLOOD GAS pH 7.31 (7.35-7.45)
[2023-03-14 06:52] LABS: MEAN CELL VOLUME 109 fl (80.0-100.0); MEAN CORPUSCULAR HGB CONC 34 g/dl (33.0-37.0); PLATELET COUNT 410 K/mm3 (130-400); REDCELL DISTRIBUTION WIDTH-CV 15.1 % (11.5-14.5)
[2023-03-14 06:57] LABS: HEMATOCRIT 27.2 % (42.0-52.0); HEMOGLOBIN 9.1 g/dl (13.5-18.0); MEAN CORPUSCULAR HEMOGLOBIN 36 pg (27-31)
--- NOTE | 2023-03-14 07:00 | NUR ---
Report received from ARCADIO Miranda. Pt is intubated and sedated. Reviewed labs, POC and IV gtts infusing. Will continue with POC.
[2023-03-14 07:07] LABS: ALBUMIN 2.5 gm/dL (3.4-4.8); BILIRUBIN,TOTAL 1.2 mg/dL (0.2-1.2); CREATININE, serum 0.79 mg/dL (0.72-1.25); POTASSIUM 3.3 mmol/L (3.5-4.5); TOTAL PROTEIN 5.4 gm/dL (6.2-8.1)
[2023-03-14 07:13] LABS: BAND 23 % (0-10); LYMPHOCYTE 3 % (20.0-51.0); NEUTROPHILS 72 % (42.0-75.2); PLATELET ESTIMATE NORMAL (NORMAL)
--- NOTE | 2023-03-14 10:36 | NUR ---
project crew worker faxed SNF referrals to [facility].
--- NOTE | 2023-03-14 12:07 | NUR ---
Mick orellana placed on pt for rectal temp of 35.4. Tube feeding started at 1200 at 10ml/hr.
[2023-03-14 13:41] LABS: ARTERIAL BLD GAS O2 SATURATION 95.2 % (92-100); ARTERIAL BLD GAS TCO2 CT 18.7; ARTERIAL BLOOD GAS HCO3 17.5 meq/L (22-26); ARTERIAL BLOOD GAS PO2 89.7 mmHg (80-100); ARTERIAL BLOOD GAS pH 7.26 (7.35-7.45)
[2023-03-14 13:43] LABS: ARTERIAL BLD GAS O2 SATURATION 91.3 % (92-100); ARTERIAL BLOOD GAS BASE EXCESS -6.2 (-2-2); ARTERIAL BLOOD GAS HCO3 18.1 meq/L (22-26); ARTERIAL BLOOD GAS PCO2 31.2 mmHg (35-45); ARTERIAL BLOOD GAS PO2 58.9 mmHg (80-100); ARTERIAL BLOOD GAS pH 7.38 (7.35-7.45)
--- NOTE | 2023-03-14 16:11 | NUR ---
OZZY called [facility] who advised SW they did recieve the referral and are reviewing it. OZZY spoke with space planner, Jaja at [facility]. She advised SW needs to call [facility] to see if their PCP will follow at the [facility]. OZZY called and left a voicemail to [facility]. OZZY recieved a call back from Radha who advised usually [facility] faciliates this, but she will speak to Jaja. OZZY faxed her the SNF referral. OZZY advised this was per the family's request for SNF at [facility].
--- NOTE | 2023-03-14 17:03 | NUR ---
NOT APPROPIRATE AT THIS TIME- PT ON MINIMAL SEDATION- WAKES UP AND FOLLOWS COMMANDS
--- NOTE | 2023-03-14 18:19 | NUR ---
Pt rested on vent during shift. Able to wake up and follow commands. Daughter at bedside most of shift. Other family in and out of room during shift. Questions answered when needed. Tube feeding started at 10 per orders. Titrating levo as toelrated. White in place, urine output is low, Dr. Dietz notifed and no new oders at this time. Pt initially placed on bear hugger for temp of 35.4, bear hugger now off as temp is 38.3. Will continue with POC.
--- NOTE | 2023-03-14 22:39 | NUR ---
PATIENT APPEARS TO BE TOLERATING THE VENT WELL AND DOES NOT SHOW SIGNS OF DISTRESS OR DISCOMFORT. GARCIA, OG, AND ET TUBE ARE ALL PATENT. WOUND VAC AND HEMOVAC ARE INTACT. NONVIOLENT RESTRAINTS ARE ENFORCED APPROPRIATELY. BED IN LOW POSITION AND PATIENT IN OBSERVABLE AREA.
[2023-03-15] VITALS (1323 sets, daily range): BP systolic 78–122; BP diastolic 46–70; PULSE 51–77; TEMP 36.3–37.2; O2SAT 91–100
--- NOTE | 2023-03-15 01:12 | NUR ---
CENTRAL LINE DISCONTINUED FROM LEFT CHEST FOLLOWING PROTOCOL. TIP INTACT - MANUAL PRESSURE MICHAEL.
[2023-03-15 04:50] LABS: MEAN CELL VOLUME 112 fl (80.0-100.0); MEAN CORPUSCULAR HGB CONC 32 g/dl (33.0-37.0); MEAN PLATELET VOLUME 11.1 fl (7.4-10.4); RED BLOOD COUNT 2.09 M/mm3 (4.20-5.60); REDCELL DISTRIBUTION WIDTH-CV 14.6 % (11.5-14.5)
[2023-03-15 05:18] LABS: ARTERIAL BLD GAS O2 SATURATION 99.3 % (92-100); ARTERIAL BLD GAS TCO2 CT 22.4; ARTERIAL BLOOD GAS BASE EXCESS -1.8 (-2-2); ARTERIAL BLOOD GAS HCO3 21.5 meq/L (22-26); ARTERIAL BLOOD GAS PCO2 30.1 mmHg (35-45); ARTERIAL BLOOD GAS pH 7.47 (7.35-7.45)
[2023-03-15 05:19] LABS: ARTERIAL BLOOD GAS PO2 204.4 mmHg (80-100)
--- NOTE | 2023-03-15 05:19 | NUR ---
PATIENT UNABLE TO TOLERATE DECREASE IN PROPOFOL DURING SEDATION VACATION. INITIAL DOSES/RATES REVERTED TO.
[2023-03-15 05:26] LABS: CALCIUM 7.7 mg/dL (8.4-10.2); CREATININE, serum 0.75 mg/dL (0.72-1.25); MAGNESIUM 1.7 mg/dL (1.6-2.6); PHOSPHOROUS 2.3 mg/dL (2.3-4.7); POTASSIUM 3.9 mmol/L (3.5-4.5)
[2023-03-15 05:28] LABS: HEMATOCRIT 23.5 % (42.0-52.0); HEMOGLOBIN 7.4 g/dl (13.5-18.0); MEAN CORPUSCULAR HEMOGLOBIN 35 pg (27-31); PLATELET COUNT 245 K/mm3 (130-400)
[2023-03-15 06:14] LABS: BAND 24 % (0-10); LYMPHOCYTE 4 % (20.0-51.0); NEUTROPHILS 72 % (42.0-75.2); PLATELET ESTIMATE NORMAL (NORMAL)
--- NOTE | 2023-03-15 07:22 | NUR ---
Report received from ARCADIO Miranda. Reviewed labs and IV gtts infusing. Pt is intubated and sedated. RRAL in place. Levo infusing, will titrate as tolerated today. TF going at 20ml per hour, will increase per orders during the day as pt tolerates. White in place, free of kinks and twists. Possible goals of care meeting today. Will continue with POC.
--- NOTE | 2023-03-15 11:59 | NUR ---
Spoke with Lisette Pts daughter and Dr. Sonia Dietz. Will plan for goals of care conversation tomorrow 03/16 when pts and other daughter are able to be here. Answered Lisette's questions about comfort measures, how that works and options that we have available. Lisette did not want informiaton about the trach procedure because she said the patient would not want that.
--- NOTE | 2023-03-15 12:25 | NUR ---
building maintenance worker recieved a call from Jaja at [facility]. She advised they will not be able to accept as there is no established PCP at [facility] to follow. OZZY spoke with [facility] who agreed with this and a PCP could not provide cares. OZZY recieved a call from [facility] who informed SW they do not have a clincial answer due to patient not being stable. She said they would be willing to follow and recieve updates though. OZZY spoke with dtLisette mckeon to provide an update. Liestte states she unfortunately does not think he dad would need a transfer or "make it." OZZY advised she saw a note from Sayda Reyes and will attend the meeting tomorrow to follow moving forward. Lisette was agreeable to this and said she was hoping to meet at 9am, but would let the nursing team know if this works for
--- NOTE | 2023-03-15 17:01 | NUR ---
NOT PREFORMED PER DR TANNER. DR TANNER WANTS PT MORE SEDATED
--- NOTE | 2023-03-15 22:45 | NUR ---
PATIENT IS TOLERATING THE VENTILATOR WELL AND DOES NOT APPEAR TO BE IN DISTRESS OR DISCOMFORT. OG, ETT, AND GARCIA ARE PATIENT. ART LINE MONITORING IN PLACED AND NONVIOLENT RESTRAINTS BEING USED APPROPRIATELY. PATIENT DOES NOT APPEAR TO BE MUCH DIFFERENT FROM PREVIOUS NIGHT. BED IN LOW POSITION AND PATIENT IN OBSERVABLE AREA.
[2023-03-16] VITALS (1173 sets, daily range): BP systolic 101–126; BP diastolic 52–72; PULSE 51–63; TEMP 36.1–36.9; O2SAT 87–100
[2023-03-16 04:15] LABS: MEAN CELL VOLUME 113 fl (80.0-100.0); MEAN CORPUSCULAR HGB CONC 31 g/dl (33.0-37.0); MEAN PLATELET VOLUME 11.1 fl (7.4-10.4); PLATELET COUNT 263 K/mm3 (130-400); RED BLOOD COUNT 2.03 M/mm3 (4.20-5.60); REDCELL DISTRIBUTION WIDTH-CV 14.5 % (11.5-14.5)
[2023-03-16 04:24] LABS: HEMATOCRIT 22.9 % (42.0-52.0); HEMOGLOBIN 7.2 g/dl (13.5-18.0); MEAN CORPUSCULAR HEMOGLOBIN 35 pg (27-31)
[2023-03-16 04:41] LABS: CALCIUM 7.8 mg/dL (8.4-10.2); CREATININE, serum 0.7 mg/dL (0.72-1.25); MAGNESIUM 1.9 mg/dL (1.6-2.6); POTASSIUM 3.7 mmol/L (3.5-4.5)
[2023-03-16 04:46] LABS: ARTERIAL BLD GAS O2 SATURATION 98.1 % (92-100); ARTERIAL BLD GAS TCO2 CT 22.8; ARTERIAL BLOOD GAS BASE EXCESS -1.8 (-2-2); ARTERIAL BLOOD GAS HCO3 21.8 meq/L (22-26); ARTERIAL BLOOD GAS PCO2 31.9 mmHg (35-45); ARTERIAL BLOOD GAS PO2 110.6 mmHg (80-100); ARTERIAL BLOOD GAS pH 7.45 (7.35-7.45)
[2023-03-16 05:41] LABS: BAND 14 % (0-10); NEUTROPHILS 78 % (42.0-75.2); PLATELET ESTIMATE NORMAL (NORMAL)
[2023-03-16 05:42] LABS: HYPOCHROMIA 2+
[2023-03-16 05:43] LABS: LYMPHOCYTE 7 % (20.0-51.0)
--- NOTE | 2023-03-16 06:20 | NUR ---
PATIENT WAS FIGHTING VENTILATOR FOR PERIOD OF TIME DURING SHIFT - RT AND RN AT BEDSIDE.
--- NOTE | 2023-03-16 09:32 | NUR ---
Goals of care conversation had with both daughters, , and patient. condition and prognosis as well as options for care. The family defered the decision to the patient. He answered yes/no questions via hand squeeze and head nod per family request. Patient agrees that he wants the trach and peg after multiple ways of describing the procedures and the risk. Discussed with patient and family that trach and peg would mean that he would be transfered to a LTAC facility. After our conversation in the room, the daughter Lisette continued to come out to the nurses desk and ask questions about the trach and peg procedures, progosis, complication possibilities and timeline of possible events. All questions answered. Family requesting to go to [facility] in [place] if possible. Will let social work know so she can let Jama know about their request.
--- NOTE | 2023-03-16 10:44 | NUR ---
cable worker helper attended 9am Goals of Care meeting with Dr. Daryl Dietz, RN Sayda, and family members at bedside. Pt was inconsistent with decisions regarding PEG tube and Trach at first, but through squeezing hands for yes/no questions he made a decision. Pt wants to proceed to [facility] in [place] with PEG/Trach. The family did not weigh in with their opinions at this time. SW faxed referral to [facility] in [place].
--- NOTE | 2023-03-16 19:30 | NUR ---
REPORT RECEIVED FROM ARCADIO BAEZ. PATIENT RESTING IN BED ON THE VENT. CHECKED LEVO, FENT, AND PROPOFOL RATE WITH DAYSHIFT NURSE. NO CHANGES MADE TO DRIPS FROM DAY SHIFT RATE AT THIS TIME.
--- NOTE | 2023-03-16 20:00 | NUR ---
PATIENT NOTED TO HAVE 2+ GENERALIZED EDEMA THROUGHOUT BODY WELL DEPENDENT EDEMA TO PENIS/SCROTAL AREA. UPPER ARMS ARE NOTED TO BE WEEPING DUE TO EDEMA.
--- NOTE | 2023-03-16 20:03 | NUR ---
Patient had a goals of care conversation with family today to evaluate quality of life in terms of acute/ chronic care. Patient has been stable today, art line removed, tube feedings tolerated, blood pressure has needed extra support, afebrile.
[2023-03-17] VITALS (1181 sets, daily range): BP systolic 95–108; BP diastolic 58–67; PULSE 48–69; TEMP 98–99; O2SAT 90–100
--- NOTE | 2023-03-17 05:00 | NUR ---
PATIENT HAS A RASS SCORE OF -1 WITH CURRENT LEVEL OF SEDATION. DOES NOT REQUIRE SEDATION VACATION AT THIS TIME DUE TO CURRENT RASS SCORE
[2023-03-17 05:15] LABS: ARTERIAL BLD GAS O2 SATURATION 97.7 % (92-100); ARTERIAL BLOOD GAS BASE EXCESS -0.3 (-2-2); ARTERIAL BLOOD GAS PCO2 31.5 mmHg (35-45); ARTERIAL BLOOD GAS PO2 94.5 mmHg (80-100); ARTERIAL BLOOD GAS pH 7.48 (7.35-7.45)
[2023-03-17 05:52] LABS: MEAN CORPUSCULAR HGB CONC 33 g/dl (33.0-37.0); MEAN PLATELET VOLUME 11.1 fl (7.4-10.4); PLATELET COUNT 264 K/mm3 (130-400); RED BLOOD COUNT 2.03 M/mm3 (4.20-5.60); REDCELL DISTRIBUTION WIDTH-CV 14.6 % (11.5-14.5)
[2023-03-17 06:00] LABS: HEMATOCRIT 21.8 % (42.0-52.0); HEMOGLOBIN 7.2 g/dl (13.5-18.0); MEAN CELL VOLUME 107 fl (80.0-100.0); MEAN CORPUSCULAR HEMOGLOBIN 35 pg (27-31)
[2023-03-17 06:25] LABS: BAND 2 % (0-10); LYMPHOCYTE 3 % (20.0-51.0); NEUTROPHILS 91 % (42.0-75.2); NUCLEATED RED BLOOD CELL 1 (0-6); PLATELET ESTIMATE NORMAL (NORMAL)
[2023-03-17 06:26] LABS: POIKILOCYTOSIS 1+; STOMATOCYTE 1+
--- NOTE | 2023-03-17 07:00 | NUR ---
BEDSIDE REPORT RECEIVED FROM ARCADIO HOUSE. PT REMAINS ON VENTILATOR, 7.5 ETT MEASURING 24 CM AT LIP, AC MODE, TV 450, PEEP 8, FIO2 30%, RATE 20. OG IN PLACE MEASURING 56 CM AT LIP, TUBE FEEDS INFUSING AT 50ML/HR ORDERED. SEDATION AND LEVO INFUSING ORDERED, SEE IV FLOWSHEET FOR RATES. PT WAKES EASILY AND IS ABLE TO FOLLOW COMMANDS ON CURRENT LEVEL OF SEDATION. GARCIA CATHETER IN PLACE TO DEPENENDENT DRAINAGE. RESTRAINTS IN PLACE AND BED ALARM ON FOR PT SAFETY.
[2023-03-17 09:30] LABS: CALCIUM 7.9 mg/dL (8.4-10.2); CREATININE, serum 0.65 mg/dL (0.72-1.25); MAGNESIUM 1.9 mg/dL (1.6-2.6); PHOSPHOROUS 1.8 mg/dL (2.3-4.7); POTASSIUM 3.9 mmol/L (3.5-4.5)
--- NOTE | 2023-03-17 12:12 | NUR ---
Data: Family accepted Subway Operator visit for prayer. Assessment: One Family member is driving back to [place] later today. Family visits daily. Subway Operator discussed the need for self care for Family members, which includes rest, eating properly, hydrating, and practicing safe driving habits. Plan of Care: Subway Operator prayed for Family members - for their health and their safety. Patient's thanked Subway Operator for visiting.
[2023-03-17 15:51] LABS: CLOSTRIDIUM DIFF A/B NEG
--- NOTE | 2023-03-17 19:00 | NUR ---
REPORT RECEIVED FROM ARCADIO SAUNDERS. PATIENT INTUBATED AN SEDATED AND RESTING COMFORTABLY ON CURRENT LEVEL OF SEDATION. NO CHANGES TO SEDATION MADE AT THIS TIME.
--- NOTE | 2023-03-17 19:34 | NUR ---
SEDATION VACATION NOT DONE AT THIS TIME. PT IS EASILY WOKEN AND FOLLOWS COMMANDS AT CURRENT LEVELS.
--- NOTE | 2023-03-17 20:00 | NUR ---
PATIENT IS NOTED TO HAVE GENERALIZED EDEMA THROUGHOUT BODY WELL SCROTAL AND PENILE EDEMA.
[2023-03-18] VITALS (1231 sets, daily range): BP systolic 81–109; BP diastolic 49–67; PULSE 45–55; TEMP 97–98.5; O2SAT 90–100
--- NOTE | 2023-03-18 05:00 | NUR ---
NO SEDATION VACATION REQUIRED AT THIS TIME DUE TO PATIENT HAVING THE APPROPRIATE RASS SCORE OF -1 ON CURRENT LEVEL OF SEDATION.
[2023-03-18 07:01] LABS: MEAN CELL VOLUME 108 fl (80.0-100.0); MEAN CORPUSCULAR HGB CONC 33 g/dl (33.0-37.0); PLATELET COUNT 269 K/mm3 (130-400); RED BLOOD COUNT 1.95 M/mm3 (4.20-5.60); REDCELL DISTRIBUTION WIDTH-CV 15.3 % (11.5-14.5)
[2023-03-18 07:07] LABS: MEAN CORPUSCULAR HEMOGLOBIN 36 pg (27-31)
[2023-03-18 07:08] LABS: CALCIUM 7.5 mg/dL (8.4-10.2); CREATININE, serum 0.64 mg/dL (0.72-1.25); POTASSIUM 3.8 mmol/L (3.5-4.5)
[2023-03-18 07:56] LABS: ANISOCYTOSIS 1+; BAND 5 % (0-10); LYMPHOCYTE 2 % (20.0-51.0); NEUTROPHILS 91 % (42.0-75.2); PLATELET ESTIMATE NORMAL (NORMAL)
[2023-03-18 10:16] LABS: MAGNESIUM 1.9 mg/dL (1.6-2.6); PHOSPHOROUS 2.2 mg/dL (2.3-4.7)
[2023-03-18 11:23] LABS: INR 1.2 (0.8-3.0); PROTHROMBIN TIME 13.1 SECONDS (9.7-12.8)
[2023-03-18 11:25] LABS: PARTIAL THROMBOPLASTIN TIME 31.8 SECONDS (26.0-37.0)
--- NOTE | 2023-03-18 17:45 | NUR ---
SEDATION VACATION NOT DONE AT THIS TIME. PT WAKES EASILY AND RESPONDS APPROPRIATELY ON CURRENT LEVELS OF SEDATION.
[2023-03-19] VITALS (1137 sets, daily range): BP systolic 87–119; BP diastolic 53–76; PULSE 43–63; TEMP 97.2–98.6; O2SAT 89–100
[2023-03-19 05:36] LABS: MEAN CELL VOLUME 110 fl (80.0-100.0); MEAN CORPUSCULAR HGB CONC 32 g/dl (33.0-37.0); MEAN PLATELET VOLUME 10.9 fl (7.4-10.4); PLATELET COUNT 240 K/mm3 (130-400); RED BLOOD COUNT 1.88 M/mm3 (4.20-5.60); REDCELL DISTRIBUTION WIDTH-CV 15.6 % (11.5-14.5)
[2023-03-19 05:38] LABS: MEAN CORPUSCULAR HEMOGLOBIN 35 pg (27-31)
[2023-03-19 05:39] LABS: HEMATOCRIT 20.7 % (42.0-52.0)
[2023-03-19 05:40] LABS: HEMOGLOBIN 6.6 g/dl (13.5-18.0)
[2023-03-19 05:58] LABS: ANISOCYTOSIS 1+; BAND 3 % (0-10); HYPOCHROMIA 1+; LYMPHOCYTE 4 % (20.0-51.0); METAMYELOCYTE 1 % (0-0); NEUTROPHILS 85 % (42.0-75.2); PLATELET ESTIMATE NORMAL (NORMAL)
[2023-03-19 05:59] LABS: MICROCYTOSIS 1+
[2023-03-19 06:13] LABS: ALBUMIN 2.9 gm/dL (3.4-4.8); BILIRUBIN,TOTAL 0.7 mg/dL (0.2-1.2); CALCIUM 8.2 mg/dL (8.4-10.2); CREATININE, serum 0.73 mg/dL (0.72-1.25); PHOSPHOROUS 2.2 mg/dL (2.3-4.7); TOTAL PROTEIN 5.5 gm/dL (6.2-8.1)
--- NOTE | 2023-03-19 07:00 | NUR ---
Report recieved from ARCADIO Serrano. Reviewed critical H/H and waiting for blood to be ready. Reviewed other critical labs. Reviewed IVF inufsing. Pt is intubated and sedated. Eyes are open and follows commands. White in place with clear, yellow urine. [address]. Wll continue with POC.
--- NOTE | 2023-03-19 08:36 | NUR ---
Blood verified by ARCADIO Haq. Blood transfusion started at 60ml/hr. Will remain in room for first 15 mintues of transfusion and monitor.
--- NOTE | 2023-03-19 11:07 | NUR ---
Blood transfuion completed. Pt tolerated unit without complications.
[2023-03-19 12:05] LABS: HEMATOCRIT 23.8 % (42.0-52.0); HEMOGLOBIN 7.6 g/dl (13.5-18.0)
--- NOTE | 2023-03-19 17:25 | NUR ---
Pt wakes up and follows commands on sedation amount. Plans for trach and PEG tomorrow.
--- NOTE | 2023-03-19 18:52 | NUR ---
Pt had uneventful shift. Transfused 1 unit of PRBC without issues. Pt remained martha in the 40s for most of the shift. Pt is able to wake up and follow commands and nods head appropriately. Tube feeding at goal and pt is tolerating without issues. No BM during shift. Pt at bedside during day.
--- NOTE | 2023-03-19 19:29 | NUR ---
Received report from day shift nurse, Michelle. Pt is intubated and lying in bed with eyes closed. Pt's family is bedside at this time. Pt's vitals are stable at this time. Pt is on levophed, propofol, and fentanyl. Pt on tube feeds at goal rate. Pt has marie in place with no kinks in the tubing. Looked at pt's labs, orders, and meds. Will continue with pt care.
[2023-03-20] VITALS (1144 sets, daily range): BP systolic 93–195; BP diastolic 53–150; PULSE 43–52; TEMP 97–98.7; O2SAT 84–100
[2023-03-20 04:30] LABS: MEAN CORPUSCULAR HGB CONC 33 g/dl (33.0-37.0); MEAN PLATELET VOLUME 10.8 fl (7.4-10.4); PLATELET COUNT 230 K/mm3 (130-400); RED BLOOD COUNT 2.33 M/mm3 (4.20-5.60); REDCELL DISTRIBUTION WIDTH-CV 18.6 % (11.5-14.5)
[2023-03-20 04:39] LABS: HEMATOCRIT 24.5 % (42.0-52.0); HEMOGLOBIN 8.1 g/dl (13.5-18.0); MEAN CELL VOLUME 105 fl (80.0-100.0); MEAN CORPUSCULAR HEMOGLOBIN 35 pg (27-31)
[2023-03-20 04:46] LABS: CREATININE, serum 0.72 mg/dL (0.72-1.25); PHOSPHOROUS 2.9 mg/dL (2.3-4.7); POTASSIUM 3.8 mmol/L (3.5-4.5)
[2023-03-20 05:14] LABS: BAND 10 % (0-10); LYMPHOCYTE 6 % (20.0-51.0); NEUTROPHILS 81 % (42.0-75.2)
[2023-03-20 05:15] LABS: ANISOCYTOSIS 2+; HYPOCHROMIA 1+; PLATELET ESTIMATE NORMAL (NORMAL)
--- NOTE | 2023-03-20 05:22 | NUR ---
Sedation vacation not done at this time due to pt being easily arroused by speech and follows commands.
--- NOTE | 2023-03-20 06:14 | NUR ---
Pt had an uneventful night. Pt's vitals were stable throughout the night. Pt opens eyes upon speech and follows commands. Pt has a rectal tube and marie in place with no kinks in the tubings. Pt intubated and lying in bed. Pt on propofol and fentanyl at this time. Tube feeds turned off at 0000 for the trach and PEG procedure. Will give report to day shift nurse.
--- NOTE | 2023-03-20 07:00 | NUR ---
Bedside report received from ARCADIO Haq. Pt had no acute events overnight. Tube feeds were shut off at approx midnight last night in anticipation of trach and peg placement today. Lovenox was also held last night and will be held this AM. Pt remains intubated and sedated. Bilateral soft wrist restraints in place. Pt appears to be comfortable; no s/s discomfort. Pt is able to wake and follow commands with ease. Rectal tube placed overnight due to continuous diarrhea and pt's skin being excoriated. Call light in reach.
--- NOTE | 2023-03-20 09:13 | NUR ---
This nurse spoke with Dr. Cortez this AM and made him aware of ENT consult. Dr. Cortez spoke with Dr. Acosta and they plan to do Trach/PEG at about 1630 today. Maryanne, OR Compliance Officer notified and states she will put pt on schedule for this afternoon. Dr. Quiroz and Dr. Steen aware as well. Karissa with social work aware and will update [facility].
--- NOTE | 2023-03-20 14:54 | NUR ---
Caridad with [facility] states patient has been accepted. welfare case worker advised that patient is scheduled to receive a peg tube and trach today with possible discharge tomorrow. Worker contacted [facility] and gave information for possible discharge on 03/21/22. It is unknown which [facility] site will have an opening. Worker met with patient's daughter, Lisette [phone] and advised of the above information. [facility] in [place] is family's preference, however, they are aware that we will transfer to the first opening. Worker faxed clinical updates to Caridad at [facility]. Worker collaborated with patient's nurses regarding the above information.
--- NOTE | 2023-03-20 17:00 | NUR ---
Sedation vacation not needed; pt is able to wake with ease, follow commands, and communicate with staff and family.
--- NOTE | 2023-03-20 17:14 | NUR ---
Pt taken to surgery at this time for trach and peg placement. Consents for trach, peg, and anesthesia completed. Pt's family present and aware.
--- NOTE | 2023-03-20 18:15 | NUR ---
Pt returned from surgery at this time. 6.[address] and connected to vent; minimal bleeding. PEG tube to abdomen; dressing clean, dry, and intact. Pt remains sedated; no s/s discomfort.
[2023-03-21] VITALS (531 sets, daily range): BP systolic 85–131; BP diastolic 50–70; PULSE 44–68; TEMP 97.6–98.6; O2SAT 82–100
--- NOTE | 2023-03-21 05:13 | NUR ---
PROPOFOL WEANED OVER NIGHT FROM 30 MCG/KG/MIN TO 20 MCG/KG/MIN. FENTANYL WEANED FROM 100 MCG/HR TO 50 MCG/HR. PT HAS TOLERATED WELL. WILL CONTINUE TO WEAN PATIENT TOLERATES. PT REMAINS STABLE ON ROUNDS. HE IS NOT OVER BREATHING THE VENT. REMAINS VERONICA CARDIC. PER REPORT CARDIOLOGY IS AWARE. RN TO CALL IF HEART RATE DROPS BELOW 40 BPM. NOW SIGN OF DISTRESS AT THIS TIME. NOSE CONTINUES TO BLEED FROM THE AREA WHERE THE SCABS WERE REMOVED. PER REPORT FROM SCABS WERE REMOVED IN OR. TRACH DRESSING CHANGED PRN. PEG DRESSING HAS BLOODY SHADOWING. DRESSING REMAINS INTACT. ARMS CONTINUE TO LEAK SEROUS FLUID. FOAM DRESSING APPLIED TO LEFT WRIST TO PROTECT AREA. SKIN IS BRUISED AND THIN. FOAM DRESSING TO COCCYX CHANGED. SKIN BARRIER APPIED TO COCCYX. STAT LOCK TO GARCIA REPLACED. SCROTUM PLACED IN PILLOW CASE SLING TO REDUCE EDMA. PILLOW UNDER ARMS TO REDUCE EDEMA. ANTIFUNGAL POWDER AND SKIN MOISTURE BARRIER CREAM APPLIED TO SKIN. PER REPORT FAMILY APPROVED PATIENT BEING SHAVED, BUT ASKED THAT WE LEAVE HIS MUSTACHE. PER REPORT THE PICC TEAM CHANGED DRESSING AND CAPS ON DAY SHIFT. INTERMITTANT IV TUBING AND PROPOFOL TUBING CHANGED.
[2023-03-21 06:45] LABS: MEAN CELL VOLUME 104 fl (80.0-100.0); MEAN CORPUSCULAR HGB CONC 33 g/dl (33.0-37.0); MEAN PLATELET VOLUME 10.9 fl (7.4-10.4); PLATELET COUNT 220 K/mm3 (130-400); RED BLOOD COUNT 2.48 M/mm3 (4.20-5.60)
[2023-03-21 06:49] LABS: HEMATOCRIT 25.8 % (42.0-52.0); HEMOGLOBIN 8.5 g/dl (13.5-18.0); MEAN CORPUSCULAR HEMOGLOBIN 34 pg (27-31)
[2023-03-21 07:00] LABS: CALCIUM 7.6 mg/dL (8.4-10.2); CREATININE, serum 0.7 mg/dL (0.72-1.25); POTASSIUM 3.4 mmol/L (3.5-4.5)
--- NOTE | 2023-03-21 07:22 | NUR ---
Report received from Jennifer ERVIN. Reviewed labs and IV gtts infusing. Pt is trached and sedated. Pt opens eyes when entering room and can follow commannds. Trach site is bloody and oozy. Dressing to PEG tube shows some shadowing. PEG tube is clammped. Pt has rectal tube and marie. [address] Patient awaiting bed at [facility]. Will continue with POC.
--- NOTE | 2023-03-21 07:29 | NUR ---
agricultural service worker faxed clinical updates to Caridad with [facility]. We await if [facility] has a bed for patient today.
[2023-03-21 07:30] LABS: ANISOCYTOSIS 1+; BAND 5 % (0-10); HYPOCHROMIA 1+; LYMPHOCYTE 8 % (20.0-51.0); METAMYELOCYTE 2 % (0-0); NEUTROPHILS 83 % (42.0-75.2); PLATELET ESTIMATE NORMAL (NORMAL)
--- NOTE | 2023-03-21 08:36 | NUR ---
Skin assessment completed with ARCADIO Haq. Mepilex dressing in place to coccyx. When removed, dark red skin noted to be non-blanchable. A small open area about 0.5cmx0.5cm noted on coccyx. No drainage noted. Mepilex dressing replaced and patient repostioned.
--- NOTE | 2023-03-21 10:28 | NUR ---
Hotel Maintenance Engineer spoke with Marah at [facility] who advised they have a bed available in [place] today for patient. SW contacted patient's , Skye and daughter, Lisette to provide update. Both were hoping for a bed in [place] but are agreeable to discharge today to . OZZY faxed discharge orders and placed completed EMS forms on patient's chart. OZZY spoke with Lisette at bedside to provide transport time of 1030, which was scheduled with [facility]. OZZY provided report number to RN and also provided contact information for [facility] to Lisette. Accepting physician is Dr. Dorsey. Discharge Plan: [facility]
--- NOTE | 2023-03-21 11:16 | NUR ---
EMS arrived to transfer patient. Attempted to call report to [facility], RN was unavaliable and will call this nurse back. Pt left with EMS at 1104.
--- NOTE | 2023-03-21 11:38 | NUR ---
Kellie RN from [facility] called back and report given. All questions answered. Kellie has this RNs number if needed.
== END 2023-03-21 11:05 | disposition short-term general hospital (02) | DRG 853 ==
LOC: ICU 21:54 → MEDICAL 03-05 18:18 → ICU 03-05 18:38 → MEDICAL 03-09 10:40 → ICU 03-14 01:10 → MEDICAL 03-14 01:11 → ICU 03-14 07:49
PROVIDERS: Internal Medicine; Internal Medicine Pulmonary Disease; Internal Medicine Sleep Medicine; Nurse Practitioner Family; Otolaryngology; ADMIT Internal Medicine
PROC: 5A1945Z Respiratory Ventilation, 24-96 Consecutive Hours (ICD-10-PCS; 2023-03-03)
PROC: 02HV33Z Insertion of Infusion Device into Superior Vena Cava, Percutaneous Approach (ICD-10-PCS; 2023-03-04)
PROC: 5A1955Z Respiratory Ventilation, Greater than 96 Consecutive Hours (ICD-10-PCS; 2023-03-06)
PROC: 0BH17EZ Insertion of Endotracheal Airway into Trachea, Via Natural or Artificial Opening (ICD-10-PCS; 2023-03-06)
PROC: 0W9B3ZX Drainage of Left Pleural Cavity, Percutaneous Approach, Diagnostic (ICD-10-PCS; 2023-03-13)
PROC: 03HY32Z Insertion of Monitoring Device into Upper Artery, Percutaneous Approach (ICD-10-PCS; 2023-03-14)
PROC: 02HV33Z Insertion of Infusion Device into Superior Vena Cava, Percutaneous Approach (ICD-10-PCS; 2023-03-14)
PROC: 0DH63UZ Insertion of Feeding Device into Stomach, Percutaneous Approach (ICD-10-PCS; 2023-03-20)
PROC: 0DH Gastrointestinal System, Insertion (ICD-10-PCS; principal; 2023-03-20 16:30)
DX: A41.9 Sepsis, unspecified organism (principal); G93.41 Metabolic encephalopathy; J18.1 Lobar pneumonia, unspecified organism; J96.01 Acute respiratory failure with hypoxia; R65.21 Severe sepsis with septic shock; I26.99 Other pulmonary embolism without acute cor pulmonale; I21.9 Acute myocardial infarction, unspecified; E87.20 Acidosis, unspecified; Z68.1 Body mass index [BMI] 19.9 or less, adult; I47.10 Supraventricular tachycardia, unspecified; E44.0 Moderate protein-calorie malnutrition; E05.00 Thyrotoxicosis with diffuse goiter without thyrotoxic crisis or storm; K52.9 Noninfective gastroenteritis and colitis, unspecified; K31.84 Gastroparesis; D53.9 Nutritional anemia, unspecified; I73.9 Peripheral vascular disease, unspecified; I07.1 Rheumatic tricuspid insufficiency; I48.91 Unspecified atrial fibrillation; K86.89 Other specified diseases of pancreas; G62.9 Polyneuropathy, unspecified; E77.8 Other disorders of glycoprotein metabolism; I10 Essential (primary) hypertension; E87.6 Hypokalemia; F10.10 Alcohol abuse, uncomplicated; F17.210 Nicotine dependence, cigarettes, uncomplicated; R29.6 Repeated falls; R00.1 Bradycardia, unspecified; R05.3 Chronic cough; Z79.891 Long term (current) use of opiate analgesic; Z95.820 Peripheral vascular angioplasty status with implants and grafts; Z96.82 Presence of neurostimulator; Z86.718 Personal history of other venous thrombosis and embolism; Z85.528 Personal history of other malignant neoplasm of kidney
CPT/HCPCS: A4314; A7521; A9284; C1751; C9113; J0282; J0330; J0456; J0690; J0692; J1100; J1644; J1650; J1815; J1940; J2250; J2371; J2543; J2704; J3010; J3370; J3411; J3475; J3480; J7030; J7050; J7060; J7120; J8540; P9016; P9047; Q9967

== ENCOUNTER 2023-10-31 17:42 | Inpatient (IN) | payer MEDICARE, OTHER ==
[~2023-10-31] VITALS: Ht 185.4 cm; Wt 60.3 kg
[2023-10-31] VITALS (285 sets, daily range): BP systolic 80; BP diastolic 59; PULSE 91; TEMP 98.1; O2SAT 80–100
[~2023-10-31 17:42] MED LIST changes: +B COMPLEX #11 TA1 PO; +LIPITOR 10MG10 MG PO; +NEURONTIN600 MG/TAB PO; +PLAVIX 75MG TAB75 MG PO; +PRIL40 PO; +QUALITY CHOICE1 T22 PO; +REGLAN 10MG10 MG/TAB PO; +VITAMIN D31000 I1 PO; +ZOFRAN 4MG T4 MG/TAB PO; +ZOFRAN ODT4 MG PO
--- NOTE | 2023-10-31 17:42 | NUR ---
Received report from ARCADIO Monroe at [facility] on Mr. Wu. Patient was noted to be intubated at their facility and transported via EMS to [facility]. On arrival patient was intubated with a 7.0 ETT and had O2 of 80% with good pleth. Immediately he was changed to our ventilator and was maxed on O2 at 100%, took approixmately 10 minutes to recover to >90%. OG tube (65 cm at the teeth) was placed with gastric return and Xray verification. White 16 faroese was placed with urine return, UA sent. ER doctor Jt exchanged ETT for a 8.0 tube and new placement was 23 cm at the teeth. Xray ordered, and was done at approximately 199910/31/2023, no Radiologist or doctor has read to verify placement. Report given to slot shift supervisor RN.
[2023-10-31] MEDS ORDERED: fentaNYL 100 ML IV SCH (18:00)
[2023-10-31] MEDS ORDERED: LR 1,000 ML IV SCH (18:00)
[2023-10-31] MEDS ORDERED: Naloxone 0.4 MG/ML VIAL IV PRN (18:00)
--- NOTE | 2023-10-31 18:15 | NUR ---
PT ARRIVED AT APPROXIMATELY 1750 PER EMS AND TRANSPORT VENT. PLACED ON OUR VENT AT 1753 PER CHARTED SETTINGS. ETT 7.0 25@ TEETH. TOLERATED WELL. WILL OBTAIN EKG AND ABG.
[2023-10-31] MEDS ORDERED: ELIQUIS 5MG PO (18:47)
[2023-10-31 20:00] LABS: ARTERIAL BLOOD GAS pH 7.29 (7.35-7.45)
[2023-10-31] MEDS ORDERED: Ipratropium 0.02% Neb Soln 0.5 MG/2.5 ML UD IH SCH (20:00)
[2023-10-31 20:01] LABS: ARTERIAL BLD GAS O2 SATURATION 97.9 % (92-100); ARTERIAL BLOOD GAS HCO3 20.2 meq/L (22-26); ARTERIAL BLOOD GAS PCO2 42.8 mmHg (35-45); ARTERIAL BLOOD GAS PO2 129.7 mmHg (80-100)
[2023-10-31] MEDS ORDERED: Apixaban 5 MG TABLET PO SCH (21:00)
[2023-10-31] MEDS ORDERED: Doxycycline Hyclate 100 MG in NS 150 ML IV SCH (21:00)
[2023-10-31 21:05] LABS: HEMOGLOBIN 10.9 g/dl (13.5-18.0); MEAN CELL VOLUME 102 fl (80.0-100.0); MEAN CORPUSCULAR HEMOGLOBIN 33 pg (27-31); MEAN CORPUSCULAR HGB CONC 33 g/dl (33.0-37.0); MEAN PLATELET VOLUME 11.2 fl (7.4-10.4); PLATELET COUNT 382 K/mm3 (130-400); REDCELL DISTRIBUTION WIDTH-CV 14.7 % (11.5-14.5)
[2023-10-31 21:07] LABS: HEMATOCRIT 33.5 % (42.0-52.0)
[2023-10-31 21:24] LABS: ALBUMIN 1.8 g/dL (3.4-4.8); BILIRUBIN,TOTAL 0.5 mg/dL (0.2-1.2); C-REACTIVE PROTEIN 29.65 mg/dL (0.00-0.50); CALCIUM 8.1 mg/dL (8.4-10.2); CREATININE, serum 1.38 mg/dL (0.72-1.25); POTASSIUM 4.2 mEq/L (3.5-4.5); TOTAL PROTEIN 5.6 g/dl (6.2-8.1)
[2023-10-31 21:34] LABS: ANISOCYTOSIS 1+; BAND 16 % (0-10); LYMPHOCYTE 3 % (20.0-51.0); METAMYELOCYTE 1 % (0-0); NEUTROPHILS 80 % (42.0-75.2); PLATELET ESTIMATE INCREASED (NORMAL)
--- NOTE | 2023-10-31 21:42 | NUR ---
ATTEMPTED TO CALL ON-CALL HOSPITALIST PER THE NUMBERS LISTED. WHEN DIALED THE NUMBER DID NOT RING. SPOKE TO THE CHARGE NURSE WHO STATED THEY USED A DIFFERENT NUMBER THE NIGHT BEFORE. TRIED THIS NUMBER AND IT RANG, BUT NO ONE ANSWERED. SHE MAY HAVE BEEN ON ANOTHER CALL. WILL ATTEMPT TO CALL BACK. WAS ATTEMPTING TO RELAY CRITICAL LAB VALUES.
[2023-10-31 21:43] LABS: TSH w REFLEX 1.897 uIU/mL (0.350-4.940)
--- NOTE | 2023-10-31 22:54 | NUR ---
PT IS LYING IN THE BED INTUBATED. FAMILY IS AT THE BEDSIDE. PT DOES OPEN EYES TO VOICE. HE DOES SQUEEZE HANDS AND MOVE FEET. HE HAS AN OG TUBE, STILL WAITING FOR THE CHEST XRAY READ IF IT IS IN THE RIGHT PLACE. HE HAS A GARCIA CATHETER WITH MINIMAL OUTPUT. HE HAS TWO PERIPHERAL IV SITES. HE HAS A FLUID BOLUS INFUSING AND FENTANYL AND PROPOFOL. PT HAS AN OPEN TUNNELED OPEN WOUND ON HIS COCCYX.
[2023-11-01] VITALS (1208 sets, daily range): BP systolic 80–114; BP diastolic 58–86; PULSE 59–76; TEMP 97.5–98.4; O2SAT 82–100
[2023-11-01 05:40] LABS: ARTERIAL BLD GAS O2 SATURATION 99.1 % (92-100); ARTERIAL BLD GAS TCO2 CT 20.5; ARTERIAL BLOOD GAS BASE EXCESS -5.2 (-2-2); ARTERIAL BLOOD GAS HCO3 19.4 meq/L (22-26); ARTERIAL BLOOD GAS PCO2 34.5 mmHg (35-45); ARTERIAL BLOOD GAS pH 7.37 (7.35-7.45)
[2023-11-01 05:41] LABS: ARTERIAL BLOOD GAS PO2 211.4 mmHg (80-100)
[2023-11-01 05:42] LABS: HEMOGLOBIN 10.3 g/dl (13.5-18.0); MEAN CELL VOLUME 101 fl (80.0-100.0); MEAN CORPUSCULAR HEMOGLOBIN 33 pg (27-31); MEAN CORPUSCULAR HGB CONC 32 g/dl (33.0-37.0); PLATELET COUNT 455 K/mm3 (130-400); RED BLOOD COUNT 3.17 M/mm3 (4.20-5.60); REDCELL DISTRIBUTION WIDTH-CV 14.8 % (11.5-14.5)
[2023-11-01 05:59] LABS: CALCIUM 8.3 mg/dL (8.4-10.2); CREATININE, serum 1.28 mg/dL (0.72-1.25); MAGNESIUM 1.5 mg/dL (1.6-2.6); PHOSPHOROUS 4.4 mg/dL (2.3-4.7); POTASSIUM 4.1 mEq/L (3.5-4.5)
[2023-11-01 06:21] LABS: BAND 6 % (0-10); EOSINOPHIL 1 % (0-4); LYMPHOCYTE 6 % (20.0-51.0); NEUTROPHILS 84 % (42.0-75.2)
[2023-11-01 06:22] LABS: PLATELET ESTIMATE INCREASED (NORMAL)
--- NOTE | 2023-11-01 07:30 | NUR ---
VS stable; patient opens eyes spontaneously and can follow simple commands. Able to assist staff when turning in bed. Becomes intermittenly agiated and occasionally observed reaching up towards ET tube. Bilateral wrist restraints in place for patient safety.
[2023-11-01] MEDS ORDERED: Magnesium Sulfate 8% 50 ML IV ONE (08:30)
[2023-11-01] MEDS ORDERED: Insulin Lispro (HumaLOG) SQ SCH (09:01)
[2023-11-01] MEDS ORDERED: Glucagon 1 MG VIAL IM PRN (09:15)
[2023-11-01] MEDS ORDERED: Dextrose (Glucose) 15 GM (4 x 3.75 GM) Chewable TABLET PACK PO PRN (09:15)
[2023-11-01] MEDS ORDERED: methylPREDNISolone Sod Succ 125 MG/2 ML VIAL IV ONE (09:15)
[2023-11-01] MEDS ORDERED: Dextrose 50% Water 25 GM/50 ML SYRINGE IV PRN (09:15)
[2023-11-01] MEDS ORDERED: CORDARONE200 MG/TAB PO (10:00)
[2023-11-01] MEDS ORDERED: LASIX 40MG TABL40 MG PO (10:01)
[2023-11-01] MEDS ORDERED: Amiodarone 200 MG TAB PO SCH (10:02)
--- NOTE | 2023-11-01 10:18 | NUR ---
Patient is currently intubated, so health and social care teacher spoke with patient's daughter/primary DPOA-HC, Michelle P# [phone], to complete assessment. Patient lives in [place] with his , Skye, P# [phone]. PCP is Dr. De León in [place]. Pharmacy is [facility]. No issues affording medications. Insurance is Medicare A and B and for Life. Michelle provided DPOA-HC which appoints her as primary and patient's as secondary. OZZY made a copy and placed on patient's file. Patient was not using DME prior to hospitalization but he has a walker, bedside commode and shower chair from previous hospitalizations. Michelle explained patient recently graduated from using his walker in August and has been independent with ADLS since. Patient has been able to transport himself to and from appointments. OZZY explained she or another health and social care teacher will continue to follow patient's care while he is hospitalized. OZZY provided contact information in case she or her mother needed to reach her. Discharge plan: Pending currently intubated
[2023-11-01] MEDS ORDERED: LEXAPRO20 MG PO (11:56)
[2023-11-01] MEDS ORDERED: BUSPAR10 MG PO (11:57)
[2023-11-01] MEDS ORDERED: PROTONIX 40MG T40 MG PO (11:58)
[2023-11-01] MEDS ORDERED: CELEBREX 200MG200 MG PO (12:17)
[2023-11-01] MEDS ORDERED: NATURE'S BLEND100 M2 PO (12:18)
[2023-11-01] MEDS ORDERED: FOLIC ACID 11 MG/TA1 PO (12:20)
[2023-11-01] MEDS ORDERED: PROBIOTIC DIGE1 EACH PO (12:21)
[2023-11-01] MEDS ORDERED: B-121000 MCG PO (12:22)
[2023-11-01] MEDS ORDERED: MULTIPLE VITAMI1 CAP PO (12:24)
[2023-11-01] MEDS ORDERED: NORCO 325 MG-51 TAB PO (12:26)
[2023-11-01] MEDS ORDERED: ALBUTEROL0.83 MG/ML IH (12:27)
[2023-11-01] MEDS ORDERED: methylPREDNISolone Sod Succ 40 MG/ML VIAL IV SCH (15:00)
--- NOTE | 2023-11-01 17:47 | NUR ---
Sedation vacation not performed as patient awakens easily can follow commands on current sedation level and becomes easily agitated when aroused.
--- NOTE | 2023-11-01 20:40 | NUR ---
PATIENT IN BED WITH 2 POINT SOFT WRIST RESTRAINTS IN PLACE, AT BEDSIDE. CATHETER IN PLACE AND SECURED TO L LEG, FREE OF KINKS AND LOOPS. PIC IN JACOB CLEAN DRY INTACT, 2 PORTS, SEDATION MEDS RUNNING TOGETHER TO [place], FLUIDS AND OTHER MEDICATIONS RUNNING TO PURPLE. PATIENT HAS TUBE FEED RUNNING AT 15ML PER HOUR. WOUND ON COCCYX HAD YELLOW SLOUGH WOUND BED, UNDERMINING NOTED, COVERED WITH MEPILEX DRESSING. PATIENT IS FOLLOWING COMMANDS. PATIENT REPOSITIONED BED IN LOWEST POSITION HOB AT 30 DEGREES.
[2023-11-02] VITALS (970 sets, daily range): BP systolic 84–113; BP diastolic 57–71; PULSE 46–70; TEMP 97.4–98.9; O2SAT 81–100
[2023-11-02 03:36] LABS: BASO % 0.2 % (0.0-2.0); GRAN # 10.8 K/mm3 (1.4-6.5); GRAN % 85.7 % (42.2-75.2); HEMOGLOBIN 10.6 g/dl (13.5-18.0); LYMPH # 1.3 K/mm3 (1.2-3.4); LYMPH % 10.3 % (20.0-51.0); MEAN CELL VOLUME 102 fl (80.0-100.0); MEAN CORPUSCULAR HEMOGLOBIN 33 pg (27-31); MEAN CORPUSCULAR HGB CONC 33 g/dl (33.0-37.0); MEAN PLATELET VOLUME 10.9 fl (7.4-10.4); MONO # 0.3 K/mm3 (0.1-0.6); MONO % 2.5 % (1.7-9.3); RED BLOOD COUNT 3.17 M/mm3 (4.20-5.60)
[2023-11-02 03:49] LABS: HEMATOCRIT 32.4 % (42.0-52.0); PLATELET COUNT 318 K/mm3 (130-400)
[2023-11-02 03:52] LABS: C-REACTIVE PROTEIN 17.12 mg/dL (0.00-0.50); CALCIUM 8.1 mg/dL (8.4-10.2); CREATININE, serum 1.12 mg/dL (0.72-1.25); MAGNESIUM 2.4 mg/dL (1.6-2.6); PHOSPHOROUS 3.5 mg/dL (2.3-4.7); POTASSIUM 3.8 mEq/L (3.5-4.5)
[2023-11-02 05:02] LABS: ARTERIAL BLD GAS O2 SATURATION 97.3 % (92-100); ARTERIAL BLOOD GAS BASE EXCESS -4.6 (-2-2); ARTERIAL BLOOD GAS HCO3 19.1 meq/L (22-26); ARTERIAL BLOOD GAS PCO2 30.5 mmHg (35-45); ARTERIAL BLOOD GAS PO2 101.1 mmHg (80-100); ARTERIAL BLOOD GAS pH 7.41 (7.35-7.45)
--- NOTE | 2023-11-02 06:59 | NUR ---
SEDATION VACATION NOT ATTEMPTED PATIENT WAS ALERT AND RESTLESS
--- NOTE | 2023-11-02 07:00 | NUR ---
REPORT RECEIVED FROM FAB Lopez RN. PT REMAINS INTUBATED AND SEDATED ON VENTILATOR; TOLERATING WELL. PT DOES WAKE AND FOLLOW COMMANDS. MEDICATIONS INFUSING THROUGH RIGHT UPPER ARM PICC. BILATERAL SOFT WRIST RESTRAINTS IN PLACE. PT HAD NO EVENTS OVERNIGHT AND APPEARS TO BE RESTING COMFORTABLY.
[2023-11-02] MEDS ORDERED: Insulin Lispro (HumaLOG) SQ SCH (08:34)
[2023-11-02] MEDS ORDERED: Furosemide 40 MG/4 ML VIAL IV SCH (09:00)
--- NOTE | 2023-11-02 10:50 | NUR ---
BRONCHIAL WASHING COMPLETED FROM [id number] Pineda TANNER. PT TOLERATED PROCEDURE WELL AND VITAL SIGNS REMAINED WITHIN LIMITS. PT'S DAUGHTER UPDATED. SPUTUM SAMPLE SENT TO LAB.
--- NOTE | 2023-11-02 13:04 | NUR ---
DR. PRADO NOTIFIED THAT PT BRADYCARDIC IN THE UPPER 40'S, BP STABLE, AND THAT T-WAVES ARE INVERTED ON LEAD 2. PROVIDER AWARE AND NO NEW ORDERS RECEIVED.
--- NOTE | 2023-11-02 19:32 | NUR ---
PATIENT CURRENTLY LAYING IN BED, INTUBATED AND SEDATED. ET TUBE AT 27 AT THE LIPS, OG TUBE AT 65 AT THE LIPS. GARCIA CATHETER IN PLACE AND DRAINING WELL. PICC TO RIGHT UPPER ARM WITH GTTS RUNNING. PERIPHERAL IV IN LEFT FOREARM WITH GTT RUNNING. NO ACUTE EVENTS.
[2023-11-02 23:02] LABS: C-ANCA 0 U/mL (0-99)
[2023-11-03] VITALS (1242 sets, daily range): BP systolic 104–122; BP diastolic 62–78; PULSE 42–61; TEMP 96.5–98.4; O2SAT 75–100
[2023-11-03 05:02] LABS: ARTERIAL BLD GAS O2 SATURATION 98.8 % (92-100); ARTERIAL BLD GAS TCO2 CT 25.8; ARTERIAL BLOOD GAS BASE EXCESS -0.1 (-2-2); ARTERIAL BLOOD GAS HCO3 24.6 meq/L (22-26); ARTERIAL BLOOD GAS PCO2 40.3 mmHg (35-45)
[2023-11-03 05:03] LABS: ARTERIAL BLOOD GAS PO2 164.8 mmHg (80-100)
--- NOTE | 2023-11-03 05:21 | NUR ---
SEDATION VACATION NOT COMPLETED AT THIS TIME DUE TO MINIMAL STIMULATION, PATIENT VIGOROUSLY SHAKES HEAD.
[2023-11-03 06:03] LABS: BASO % 0.2 % (0.0-2.0); GRAN # 11.3 K/mm3 (1.4-6.5); GRAN % 87.2 % (42.2-75.2); LYMPH # 1.2 K/mm3 (1.2-3.4); LYMPH % 9.3 % (20.0-51.0); MEAN CELL VOLUME 101 fl (80.0-100.0); MEAN CORPUSCULAR HGB CONC 32 g/dl (33.0-37.0); MEAN PLATELET VOLUME 10.9 fl (7.4-10.4); MONO # 0.3 K/mm3 (0.1-0.6); MONO % 2.1 % (1.7-9.3); PLATELET COUNT 366 K/mm3 (130-400); RED BLOOD COUNT 2.78 M/mm3 (4.20-5.60); REDCELL DISTRIBUTION WIDTH-CV 14.9 % (11.5-14.5)
[2023-11-03 06:07] LABS: MEAN CORPUSCULAR HEMOGLOBIN 32 pg (27-31)
[2023-11-03 06:14] LABS: CALCIUM 8.4 mg/dL (8.4-10.2); CREATININE, serum 1.21 mg/dL (0.72-1.25); MAGNESIUM 2.2 mg/dL (1.6-2.6); PHOSPHOROUS 3.1 mg/dL (2.3-4.7); POTASSIUM 3.9 mEq/L (3.5-4.5)
[2023-11-03 06:38] LABS: ANGIOTENSIN CONVERTING ENZYME 38 U/L (14-82)
[2023-11-03] MEDS ORDERED: Sodium Chloride 3% For Neb Soln 4 ML AMP IH SCH (09:00)
--- NOTE | 2023-11-03 11:29 | NUR ---
Data: Patient is intubated and on contact precautions. No one is visiting at this time. Assessment: None. Patient is intubated. Plan of Care: Animal Researcher provided prayer outside of room. Chaplains will remain available as needed/requested while Patient is admitted to this hospital.
[2023-11-03] MEDS ORDERED: Amiodarone 200 MG TAB PO SCH (12:15)
[2023-11-03] MEDS ORDERED: methylPREDNISolone Sod Succ 40 MG/ML VIAL IV SCH (15:00)
--- NOTE | 2023-11-03 19:28 | NUR ---
PATIENT CURRENTLY INTUBATED AND SEDATED. PATIENT REACTS TO PAIN BUT DOES NOT FOLLOW COMMANDS. ET TUBE AT 27 AT THE LIPS, OG AT 64 AT LIPS. GARCIA CATHETER IN PLACE AND DRAINING WELL. PICC TO RIGHT UPPER ARM. NO ACUTE EVENTS.
[2023-11-04] VITALS (1201 sets, daily range): BP systolic 106–144; BP diastolic 63–87; PULSE 41–73; TEMP 96.6–98.3; O2SAT 88–100
--- NOTE | 2023-11-04 05:02 | NUR ---
SEDATION VACATION NOT COMPLETED AT THIS TIME DUE TO PATIENT THRASHING AND FIGHTING VENTILATOR WITH MINIMAL STIMULATION.
[2023-11-04 05:17] LABS: ALBUMIN 1.7 g/dL (3.4-4.8); BILIRUBIN,TOTAL 0.3 mg/dL (0.2-1.2); C-REACTIVE PROTEIN 2.92 mg/dL (0.00-0.50); CALCIUM 8.1 mg/dL (8.4-10.2); CREATININE, serum 1.08 mg/dL (0.72-1.25); POTASSIUM 3.4 mEq/L (3.5-4.5)
[2023-11-04 05:45] LABS: ARTERIAL BLD GAS O2 SATURATION 96.4 % (92-100); ARTERIAL BLD GAS TCO2 CT 24.5; ARTERIAL BLOOD GAS BASE EXCESS -0.4 (-2-2); ARTERIAL BLOOD GAS HCO3 23.4 meq/L (22-26); ARTERIAL BLOOD GAS PCO2 35.6 mmHg (35-45); ARTERIAL BLOOD GAS PO2 88.1 mmHg (80-100); ARTERIAL BLOOD GAS pH 7.44 (7.35-7.45)
[2023-11-04] MEDS ORDERED: *Potassium Replacement Protocol MC SCH (06:15)
[2023-11-04] MEDS ORDERED: Potassium Chloride 100 ML IV SCH (06:15)
[2023-11-04 06:54] LABS: BASO % 0.1 % (0.0-2.0); EOS % 0.1 % (0.0-4.0); GRAN # 9.4 K/mm3 (1.4-6.5); GRAN % 80.2 % (42.2-75.2); LYMPH # 1.7 K/mm3 (1.2-3.4); LYMPH % 14.4 % (20.0-51.0); MEAN CELL VOLUME 101 fl (80.0-100.0); MEAN CORPUSCULAR HGB CONC 32 g/dl (33.0-37.0); MEAN PLATELET VOLUME 11.1 fl (7.4-10.4); MONO # 0.4 K/mm3 (0.1-0.6); MONO % 3.8 % (1.7-9.3); PLATELET COUNT 310 K/mm3 (130-400); REDCELL DISTRIBUTION WIDTH-CV 14.9 % (11.5-14.5)
[2023-11-04 06:56] LABS: HEMATOCRIT 27.3 % (42.0-52.0); HEMOGLOBIN 8.8 g/dl (13.5-18.0); MEAN CORPUSCULAR HEMOGLOBIN 33 pg (27-31)
--- NOTE | 2023-11-04 07:45 | NUR ---
Paient responds to painful stimuli and occasionally opens eyes spontaneously, however does not follow commands. VS stable on current settings.
[2023-11-04] MEDS ORDERED: Lisinopril 5 MG TAB PO SCH (09:42)
[2023-11-04] MEDS ORDERED: Furosemide 40 MG/4 ML VIAL IV ONE (09:45)
[2023-11-04] MEDS ORDERED: SYNTHROID 0.0.025 MG PO (10:09)
[2023-11-04] MEDS ORDERED: Gabapentin 300 MG CAP PO SCH (12:00)
--- NOTE | 2023-11-04 14:12 | NUR ---
Sedation turned off and CPAP trial initiated; will continue to monitor.
--- NOTE | 2023-11-04 16:25 | NUR ---
Patient having increased restlessness and respiration 30-35. CPAP trial aborted and back on AC mode. Sedation re-started per Dr. Steen's orders. Will continue to monitor.
--- NOTE | 2023-11-04 16:53 | NUR ---
PT DID A CPAP TRIAL WITH 5 PRESSURE SUPPORT AND 5 OF PEEP FROM 1412 TO 1625. TOLERATED FAIRLY WELL AT END INCREASED RR AND RSBI 104. PLACED BACK ON ASSIST CONTROL PER CHARTED SETTINGS.
[2023-11-05] VITALS (1018 sets, daily range): BP systolic 119–136; BP diastolic 71–97; PULSE 62–90; TEMP 98–98.4; O2SAT 76–100
--- NOTE | 2023-11-05 00:05 | NUR ---
PT IS RESTING IN THE BED. HE IS SEDATED AND ON A VENTILATOR. HE DOES NOT FOLLOW COMMANDS, BUT HE DOES OPEN HIS EYES TO VOICE. HE HAS GARCIA CATHETER DRAINING BLOOD TINGED URINE, WHICH IS NOT A NEW FINDING. HE HAS AN OG TUBE WITH TUBE FEED AND FREE WATER INFUSING. HE HAS BILATERAL UPPER RESTRAINTS IN PLACE. HE HAS A RIGHT UPPER PICC LINE WITH PROPOFOL, FENTANYL AND INTERMITTENT ANTIBIOTICS INFUSING. HE IS ON CONTACT FOR MRSA AND STAPH IN THE NARES. NO FAMILY AT THE BEDSIDE AT THIS TIME.
[2023-11-05 05:21] LABS: HEMOGLOBIN 10.7 g/dl (13.5-18.0); MEAN CELL VOLUME 100 fl (80.0-100.0); MEAN CORPUSCULAR HEMOGLOBIN 32 pg (27-31); MEAN CORPUSCULAR HGB CONC 32 g/dl (33.0-37.0); MEAN PLATELET VOLUME 10.5 fl (7.4-10.4); PLATELET COUNT 293 K/mm3 (130-400); RED BLOOD COUNT 3.35 M/mm3 (4.20-5.60); REDCELL DISTRIBUTION WIDTH-CV 14.6 % (11.5-14.5)
[2023-11-05 05:31] LABS: HEMATOCRIT 33.6 % (42.0-52.0)
[2023-11-05 05:46] LABS: ALBUMIN 1.8 g/dL (3.4-4.8); BILIRUBIN,TOTAL 0.3 mg/dL (0.2-1.2); CALCIUM 8.2 mg/dL (8.4-10.2); CREATININE, serum 1.05 mg/dL (0.72-1.25); PHOSPHOROUS 2.1 mg/dL (2.3-4.7); POTASSIUM 3.8 mEq/L (3.5-4.5)
[2023-11-05] MEDS ORDERED: Furosemide 40 MG/4 ML VIAL IV ONE (09:00)
[2023-11-05] MEDS ORDERED: Spironolactone 12.5 MG TAB PO SCH (09:00)
[2023-11-05] MEDS ORDERED: POTASSIUM PHOSHATE IV ONE (10:15)
[2023-11-05] MEDS ORDERED: NS IV ONE (10:15)
[2023-11-05] MEDS ORDERED: [UNRECOGNIZED DRUG - OTHER] IV ONE (10:15)
--- NOTE | 2023-11-05 10:21 | NUR ---
STARTED CPAP TRIAL WITH 5 PRESSURE SUPPORT 5 PEEP. TOLERATING WELL AT THIS TIME
--- NOTE | 2023-11-05 10:39 | NUR ---
SEDATION SHUT OFF AT 0841 FOR WEANING TRIAL. PATIENT FOLLOWING COMMANDS AND TOLERATING THE VENTILATOR. TUBE FEEDING TURNED OFF AT THIS TIME FOR POTENTIAL EXTUBATION. NOTIFIED RT FOR CPAP TRIAL.
--- NOTE | 2023-11-05 12:39 | NUR ---
EXTUBATED AT 1234. PLACED ON 4 LITERS, NASAL CANNULA. RESTRAINTS REMOVED. OG DISCONTINUED WITH EXTUBATION.
--- NOTE | 2023-11-05 13:03 | NUR ---
PT EXTUBATED AT 1234 TO 4L/NC TOLERATED WELL. STRONG COUGH MODERATE THICK SECRETIONS. WILL CONTINUE TO MONITOR.
--- NOTE | 2023-11-05 13:16 | NUR ---
Pt remians very drowsy, arouses to name and follows simple commands. Increaed O2 to 8L and placed on open oxy mask d/t mouth breathing.
--- NOTE | 2023-11-05 15:03 | NUR ---
lineworker reviewed PT recommendations which is IPR. OZZY notified Phuong, IPR director, whom is going to follow along and monitor patient's needs. SW was notified patient was extubated. SW met with patient and provided the Medicare.gov list of options for IPR and SNF. Patient stated "okay." OZZY explained she would continue to follow along and determine patient's choice of if he wanted to go to IPR or SNF.
--- NOTE | 2023-11-05 15:15 | NUR ---
open hearth worker spoke with patient's daughter, Michelle, primary DPOA-HC to discuss PT recommendations. Michelle expressed she would like him to go to the [facility] if he qualifies but if patient needs SNF instead, she would like him to go to [facility] as that was the last facility he went to. Michelle stated that if [facility] is unable to accept, she would like the [facility]. OZZY understands and explained she would follow up with patient tomorrow as he was just extubated today. Michelle understood.
--- NOTE | 2023-11-05 16:55 | NUR ---
PATIENT IS REFUSING TREATMENTS AND CARES. THIS NURSE WAS GIVING INSULIN WHEN THE PATIENT STATED "I DON'T NEED THAT BULLSHIT". PATIENT EVENTUALLY COMPLIED WITH INSULIN. PATIENT STATED HE WANTED TO "GO HOME AND ". PATIENT GRADUALLY BECOMING MORE RESISTENT TO CARES. DAUGHTER, IRWIN, CALLED, SHE STATED SHE WOULD BE HERE AFTER WORK.
--- NOTE | 2023-11-05 19:45 | NUR ---
Received report from ARCADIO Yang. Pt is resting in bed with bed in low position and call light within reach. Pt's daughter is at bedside at this time. Vitals are stable at this time with pt on 2L O2 via NC and pt does not look in distress at this time. Pt has zosyn running and no other drips or IVFs at this time. White in place with no kinks in tubing. Will continue with pt care.
[2023-11-06] VITALS (1031 sets, daily range): BP systolic 123–143; BP diastolic 78–95; PULSE 52–77; TEMP 97–98.2; O2SAT 82–100
[2023-11-06] MEDS ORDERED: Furosemide 40 MG/4 ML VIAL IV ONE ×2 (02:15→12:00)
[2023-11-06 02:23] LABS: ARTERIAL BLD GAS O2 SATURATION 91.3 % (92-100); ARTERIAL BLD GAS TCO2 CT 26.4; ARTERIAL BLOOD GAS BASE EXCESS 2.9 (-2-2); ARTERIAL BLOOD GAS HCO3 25.5 meq/L (22-26); ARTERIAL BLOOD GAS PCO2 31.9 mmHg (35-45); ARTERIAL BLOOD GAS PO2 57.9 mmHg (80-100); ARTERIAL BLOOD GAS pH 7.52 (7.35-7.45)
[2023-11-06] MEDS ORDERED: LORazepam 2 MG/ML 1 ML VIAL IV ONE (03:15)
[2023-11-06 05:36] LABS: MEAN CELL VOLUME 100 fl (80.0-100.0); MEAN CORPUSCULAR HGB CONC 33 g/dl (33.0-37.0); PLATELET COUNT 366 K/mm3 (130-400); REDCELL DISTRIBUTION WIDTH-CV 14.5 % (11.5-14.5)
[2023-11-06 05:50] LABS: HEMATOCRIT 29.1 % (42.0-52.0); HEMOGLOBIN 9.5 g/dl (13.5-18.0); MEAN CORPUSCULAR HEMOGLOBIN 33 pg (27-31)
[2023-11-06 06:22] LABS: BAND 1 % (0-10); LYMPHOCYTE 8 % (20.0-51.0); METAMYELOCYTE 1 % (0-0); NEUTROPHILS 85 % (42.0-75.2); PLATELET ESTIMATE NORMAL (NORMAL)
[2023-11-06 06:58] LABS: CALCIUM 8.2 mg/dL (8.4-10.2); CREATININE, serum 0.98 mg/dL (0.72-1.25); POTASSIUM 3.5 mEq/L (3.5-4.5)
[2023-11-06 07:12] LABS: ARTERIAL BLD GAS O2 SATURATION 94.7 % (92-100); ARTERIAL BLD GAS TCO2 CT 29.3; ARTERIAL BLOOD GAS BASE EXCESS 5.2 (-2-2); ARTERIAL BLOOD GAS HCO3 28.2 meq/L (22-26); ARTERIAL BLOOD GAS PCO2 35.5 mmHg (35-45); ARTERIAL BLOOD GAS PO2 72.3 mmHg (80-100); ARTERIAL BLOOD GAS pH 7.52 (7.35-7.45)
--- NOTE | 2023-11-06 07:44 | NUR ---
Pt went from 2L NC to being on the BiPAP at 45% FIO2. Ativan given to help pt relax and lasix was given to see if it was extra fluid was causing the SPO2 to drop and RR to increase. Pt now has a external catheter in place now. Pt has ABX running at this time. Pt is lying in bed with call light within reach. Gave report to day shift nurse.
--- NOTE | 2023-11-06 09:10 | NUR ---
plastics worker received goals of care consult. OZZY confirmed with Michelle, patient's daughter and primary DPOA-HC, P# [phone] that she would be available for the meeting at 1 pm. OZZY contacted patient's , Skye, P# [phone], and she is also able to be present via telephone for the 1 pm meeting. Skye asked how patient was doing, SW expressed he was currently on a Bipap and she would get more updates from either the nurse or doctor. Skye understood. Both Skye and Michelle will be present via telephone. OZZY notified Kori, ICU steel division supervisor, and patient's nurse of the goals of care meeting time.
--- NOTE | 2023-11-06 10:36 | NUR ---
Initial visit attempt; Nurse with patient and states that although he could answer a question about his comfort he is not doing well. Manager Security And Safety wanted both nurse and family (who are not available) to know Manager Security And Safety care is available.
--- NOTE | 2023-11-06 10:45 | NUR ---
Palliative care consult ordered. Family planned to meet with care team at 1300, but patient continues to decline. Conference call made with patient's daughter/DPOA (Lisette) & (Skye). Dr. Steen talked with family with Dr. Schafer present. Dr. Steen discussed events of admission & patient's status today. Patient more lethargic with need for continued bipap use. Patient with need for intubation if the goal is to continue to be aggressive. Dr. Steen discussed the [facility] recovery needs of patient. Comfort care option discussed. referred to Lisette for decision making due to being the primary DPOA. Lisette stated that patient & her discussed code status & intubation yesterday. Patient does not want to be reintubated & does not want chest compressions. Lisette agrees with making patient a DNR/DNI. She will talk with other family members about proceeding with comfort care. Lisette stated that she is two hours away, but would start traveling the hospital to be with the patient. All questions answered.
--- NOTE | 2023-11-06 12:23 | NUR ---
municipal maintenance worker attended interdisciplinary clinical rounding with Dr. Schafer. Dr. Schafer expressed patient may need to be intubated again so she would like to have the goals of care conversation sooner than 1 pm. OZZY waited for Dr. Steen, critical care doctor, to arrive to contact the daughter and . Dr. Steen explained patient's current medical status and code status. Patient's daughter, Michelle, agreed patient informed her yesterday he does not want to be intubated again and does not want chest compressions. Michelle agreed with DNR status. Patient's stated she was in agreement with Michelle's decision as Michelle is the primary DPOA-HC. Michelle expressed she wanted to speak with other family members before making a final decision on comfort care. Michelle expressed she lives approximately two hours away and she was going to drive to the hospital after they get off the phone. OZZY notified patient's nurse to contact her when the daughter arrives.
--- NOTE | 2023-11-06 13:45 | NUR ---
Patient's (Skye) & daughter (Lisette) at bedside. Patient alert, on bipap & not oriented to place or time. Explained reason for visit was to follow-up on phone call from this morning regarding plan of care & answer any questions that they may have. Reviewed the options discussed in phone call related to aggressive vs. comfort care. Daughter stated that patient does not want intubated or chest compressions per their conversations; patient able to verbalize that he does want intubation or chest compressions. Patient asked "So, am I dying then?" Advised that if he did not want aggressive measures then the goals of care would likely need to change to that of comfort focused. Discussed what the comfort care process would entail, bipap use, activity, medications for comfort, etc. Discussed that comfort care could be started at the hospital, but there was also longer term comfort care settings (hospice, [place] with hospice or home with hospice). Many questions answered by patient & family. Daughter plans to discuss options with her when he arrives at hospital later today. Support provided. Update of conversation provided to ARCADIO David.
[2023-11-06] MEDS ORDERED: Morphine 4 MG/ML VIAL IV PRN (14:30)
--- NOTE | 2023-11-06 15:08 | NUR ---
Patient was on bipap at the beginning of shift, then at 0720 we switched to oxymask and quickly went from 6 liters to 12 liters, and at 0740, was switched back to bipap for oxygen support to maintain >90%. During morning assessment, he was lethargic and could answer his birthday and that he was in the hospital. However, when hospitalist rounded he was less responsive, and would not arouse to answer questions or follow commands. At this time, social psychologist had reached out to family to converse on plan of care direction with daughter and bedside. The family meeting consisted on whether to resume full aggressive care or to explore other options. Oxygen saturations low, labored breathing, apneic episodes would suggest that a possible reintubation was looming. Patient stated to familly and in meeting, that he did not want to resusitated and or be intubated. Full code was then changed to DNR/I. Currently he is alternating between bipap and oxymask at 8 liters. Oxygen demands are still high. Family is bringing him tacos and pepsi per his request. Will educate family on risk for aspiration and high oxygen demands. No decisions have been made for comfort care at this time. Will continue to follow for questions and concerns regarding end of life, plan of care, and comfort measures.
--- NOTE | 2023-11-06 19:20 | NUR ---
Received report from ARCADIO David. Pt resting in bed with call light within reach and family at bedside. Vitals are stable at this time. External catheter in place with no kinks in tubing. No drips and IVF's running at this time. Pt on 7L oxymask. Will continue with pt care.
--- NOTE | 2023-11-06 19:24 | NUR ---
Have had multiple discussions with family about comfort care, planning goals of care, and the process of end of life. Options have been discussed with family per our Pallative RN. Throughout the day, the family has been ultimately undecisive. This evening daughter approached this RN and expressed that they were ready for patient to be made comfort care. I reached out to Hospitalist and she came to speak with family and patient. At this time, comfort care request has been withdrawn. They plan on reconsidering option tomorrow or when/ if patient has difficulty again. Will report changes in care to appropriate resources.
[2023-11-06] MEDS ORDERED: HYDROcodone/Acetaminophen 10-325 MG TAB PO PRN (19:30)
[2023-11-06] MEDS ORDERED: HYDROmorphone 0.5 MG/0.5 ML SYRINGE IV PRN (19:30)
[2023-11-07] VITALS (709 sets, daily range): BP systolic 113–134; BP diastolic 54–87; PULSE 56–68; TEMP 97.6–98.3; O2SAT 50–100
[2023-11-07 05:54] LABS: MEAN CELL VOLUME 101 fl (80.0-100.0); MEAN CORPUSCULAR HGB CONC 32 g/dl (33.0-37.0); MEAN PLATELET VOLUME 10.5 fl (7.4-10.4); PLATELET COUNT 333 K/mm3 (130-400); RED BLOOD COUNT 2.85 M/mm3 (4.20-5.60); REDCELL DISTRIBUTION WIDTH-CV 14.6 % (11.5-14.5)
[2023-11-07 05:55] LABS: HEMATOCRIT 28.9 % (42.0-52.0); HEMOGLOBIN 9.3 g/dl (13.5-18.0); MEAN CORPUSCULAR HEMOGLOBIN 33 pg (27-31)
[2023-11-07 06:11] LABS: ALBUMIN 1.9 g/dL (3.4-4.8); BILIRUBIN,TOTAL 0.4 mg/dL (0.2-1.2); C-REACTIVE PROTEIN 0.97 mg/dL (0.00-0.50); CALCIUM 8.1 mg/dL (8.4-10.2); CREATININE, serum 0.95 mg/dL (0.72-1.25); MAGNESIUM 2.1 mg/dL (1.6-2.6); POTASSIUM 3.5 mEq/L (3.5-4.5); TOTAL PROTEIN 5.1 g/dl (6.2-8.1)
--- NOTE | 2023-11-07 06:19 | NUR ---
Pt had an uneventful night. Pt had some complaints of pain throughout the night and pain meds were given per EMAR. Pt repositioned frequently. Pt was on the BiPAP most of the night and the SPO2 stayed above 90% throughout the night. Vitals were stable throughout this shift. Pt on ABX at this time but no IVF'S and drips. External catheter is in place with no kinks in tubing. Pt's coccyx mepelex was replaced during this shift. Will give report to day shift nurse.
[2023-11-07] MEDS ORDERED: Potassium Chloride 100 ML IV SCH (06:30)
--- NOTE | 2023-11-07 07:00 | NUR ---
REPORT RECEIVED FROM ARCADIO SANON. PT RESTING IN BED, VSS. PER REPORT PT ON BIPAP THROUGHOUT THE NIGHT, TOLERATED WELL. CURRENTLY ON 8L O2 PER OXYMASK, O2 SAT 92%. R UPPER ARM PICC WNL, POTASSIUM INFUSING ORDERED. EXTERNAL CATHETER IN PLACE TO DEPENDENT DRAINAGE, CLEAR YELLOW URINE NOTED IN BAG. PT IS ALERT AND ORIENTED, USES CALL LIGHT FOR NEEDS, BED ALARM IN PLACE FOR PT SAFETY.
[2023-11-07 07:02] LABS: BAND 6 % (0-10); HYPOCHROMIA 1+; LYMPHOCYTE 5 % (20.0-51.0); METAMYELOCYTE 1 % (0-0); NEUTROPHILS 86 % (42.0-75.2); PLATELET ESTIMATE NORMAL (NORMAL)
[2023-11-07] MEDS ORDERED: Furosemide 40 MG/4 ML VIAL IV ONE (08:45)
--- NOTE | 2023-11-07 13:45 | NUR ---
PATIENT CAME FROM ICU.PATIENT ALERT AND ORIENTED X3 AT THIS TIME. PATIENT ON 6L 02/OXYMASK.TELEMETRY IN PLACE. RIGHT UPPER ARM PICC WNL. EXTERNAL CATHETER IN PLACE TO DEPENDED DRAINAGE DRAINING CLEAR YELLOW URINE. PATIENT DENIES PAIN AT THIS TIME. PATIENT HAS BILATERAL ARM SKIN TEARS COVERED WITH MEPILEX, STAGE III WOUND TO COCCYX, BILATERAL ANKLES REDDENED. PATIENT AT BEDSIDE. CALL LIGHT WITHIN REACH. BED AT LOWEST POSITION. BED ALARM ON.
--- NOTE | 2023-11-07 13:49 | NUR ---
gang worker attended interdisciplinary clinical rounding with Dr. Schafer. Patient has improved overnight and could be transferred to the medical floor. Patient is remaining DNR/DNI. SW spoke with patient and his daughter, Michelle, regarding discharge plan if he continues to improve and could tolerate rehab. Patient expressed he did not want to do IPR as it was three hours of therapy a day but is interested in [facility]. SW expressed she would send the referral so they can continue to follow while patient is here and determine if they can accept. OZZY faxed referral to [facility]. SW notified [facility] community mental health social worker. Discharge plan: possibly SNF
[2023-11-07] MEDS ORDERED: Amoxicillin/Clavulanate K+ 875/125 MG TAB PO SCH (17:00)
[2023-11-07] MEDS ORDERED: Famotidine 20 MG TAB PO SCH (21:00)
--- NOTE | 2023-11-07 21:39 | NUR ---
PATIENT RESTING IN BED WATCHING TV. DENIES ANY PAIN BUT IS REPORTING DIFFICULTY FALLING ASLEEP. O2 IN USE AT 10L VIA OXYMASK. CALL LIGHT WITHIN REACH. BED IS LOCKED AND IN LOW POSTION.
--- NOTE | 2023-11-08 00:40 | NUR ---
ASSIGNMENT OFFICER CALLED TO LET RN KNOW THAT PATIENT'S HEART RATE HAD DROPPED INTO THE 30s. PATIENT IS RESTING IN BED AND DENIES ANY LIGHT HEADEDNESS OR FAINT FEELING.
[2023-11-08 03:11] VITALS: BP 123/65; PULSE 68; TEMP 98.4
[2023-11-08 06:55] LABS: BASO % 0.1 % (0.0-2.0); EOS # 0.1 K/mm3 (0.0-0.7); EOS % 0.6 % (0.0-4.0); GRAN # 17.2 K/mm3 (1.4-6.5); HEMOGLOBIN 10.2 g/dl (13.5-18.0); LYMPH # 2.1 K/mm3 (1.2-3.4); LYMPH % 10.2 % (20.0-51.0); MEAN CELL VOLUME 103 fl (80.0-100.0); MEAN CORPUSCULAR HEMOGLOBIN 33 pg (27-31); MEAN CORPUSCULAR HGB CONC 32 g/dl (33.0-37.0); MEAN PLATELET VOLUME 10.5 fl (7.4-10.4); MONO # 0.8 K/mm3 (0.1-0.6); MONO % 3.8 % (1.7-9.3); PLATELET COUNT 392 K/mm3 (130-400); RED BLOOD COUNT 3.08 M/mm3 (4.20-5.60)
[2023-11-08 07:05] LABS: HEMATOCRIT 31.8 % (42.0-52.0)
[2023-11-08 07:18] LABS: CALCIUM 8.1 mg/dL (8.4-10.2); CREATININE, serum 0.89 mg/dL (0.72-1.25); POTASSIUM 3.2 mEq/L (3.5-4.5)
[2023-11-08 07:40] VITALS: BP 131/76; PULSE 65; TEMP 98.1
[2023-11-08] MEDS ORDERED: Potassium Bicarbonate/Citrate 20 MEQ Effervescent TAB PO SCH (07:45)
[2023-11-08] MEDS ORDERED: Lisinopril 10 MG TAB PO SCH (09:00)
[2023-11-08] MEDS ORDERED: predniSONE 20 MG TAB PO SCH (09:00)
--- NOTE | 2023-11-08 09:05 | NUR ---
NIKOLAI Seay was notified of critical lab value.
--- NOTE | 2023-11-08 09:30 | NUR ---
During rounding met with ptShawn Gooden with Dr. Iraheta, myself, Gwen PRECIADO, called daughter Michelle on phone to review pt status. Pt currently DNR and on 10L of O2. When options of discharge were presented to Giacomo pt stated, "I absolutley won't go to [facility]. I had a horrible experience there and will not go back." [facility] was suggested to pt. Pt agreed to go to [facility]. Gwen noted this and will make a referral. Pt preferred aggressive care vs Hospice at this time.
[2023-11-08 12:00] VITALS: BP 132/78; PULSE 71; TEMP 98.4
[2023-11-08 16:00] VITALS: BP 111/61; PULSE 67; TEMP 98.1
--- NOTE | 2023-11-08 16:23 | NUR ---
Foam Fabricator attended clinical rounds with the team. Hospitalist and RN-Regina FELICIANO met with patient about goals of care as he is back up to 10-12 liters which cannot be managed at SNF. Patient would like to continue agressive care measures and was agreeable to [facility], however will only agree to the [place] location as his experience at the location was bad. Patient's daughter, Lisette (ph#[phone]) was on speakerphone during conversation. SW contacted Jama at [facility] and faxed referral. The [place] location will accept patient tomorrow. Transport was set up for noon tomorrow with [facility]. SW notified the team as well as daughterLisette of transport time.
[2023-11-08 21:30] VITALS: BP 114/68; PULSE 79; TEMP 98.4
--- NOTE | 2023-11-08 22:27 | NUR ---
PATIENT RESTING IN BED WATCHING TV. CURRENTLY ON 10L O2 VIA OXYMASK. REPORTS SPECIALTY MATTRESS HAS HELPED THE PAIN FROM HIS SACRAL ULCER AND PRIMO BOOTS ARE HELPFUL FOR HEELS. CALL LIGHT WITHIN REACH. BED IS LOCKED AND IN LOW POSITION WITH BED ALARM ON.
[2023-11-08 23:57] VITALS: BP 113/60; PULSE 63; TEMP 98.3
[2023-11-09 03:22] VITALS: BP 130/72; PULSE 56; TEMP 97.7
[2023-11-09 06:38] LABS: MEAN CELL VOLUME 103 fl (80.0-100.0); MEAN CORPUSCULAR HGB CONC 32 g/dl (33.0-37.0); MEAN PLATELET VOLUME 10.6 fl (7.4-10.4); PLATELET COUNT 336 K/mm3 (130-400); RED BLOOD COUNT 2.98 M/mm3 (4.20-5.60); REDCELL DISTRIBUTION WIDTH-CV 14.8 % (11.5-14.5)
[2023-11-09 06:42] LABS: HEMATOCRIT 30.6 % (42.0-52.0); HEMOGLOBIN 9.7 g/dl (13.5-18.0); MEAN CORPUSCULAR HEMOGLOBIN 33 pg (27-31)
[2023-11-09 06:54] LABS: CALCIUM 8.1 mg/dL (8.4-10.2); CREATININE, serum 0.85 mg/dL (0.72-1.25); POTASSIUM 3.6 mEq/L (3.5-4.5)
[2023-11-09 07:34] LABS: HYPOCHROMIA 2+; LYMPHOCYTE 13 % (20.0-51.0); METAMYELOCYTE 2 % (0-0); NEUTROPHILS 78 % (42.0-75.2); PLATELET ESTIMATE NORMAL (NORMAL)
[2023-11-09 07:36] LABS: STOMATOCYTE 1+
[2023-11-09 08:00] VITALS: BP 146/82; PULSE 50; TEMP 98.1
--- NOTE | 2023-11-09 09:00 | NUR ---
SHIFT ASSESSMENT COMPLETED AT THIS TIME. PT A&OX4. PT REPORTS 10/10 PAIN LOCATED IN HIS OPEN WOUND ON THE COCYX AND IN HIS BILATERAL FEET. PT STATES THE PAIN IN HIS FEET IS HIS BASELINE AND D\T HIS NEUROPATHY. PT REQUESTS PRN HYDRO. PT HAS MEPILEX ON BOTTOM THAT IS C.D.I. PT HAS THREE SKIN TEARS ON BILAT ARMS THAT ARE COVERED. PRN PAIN MEDICATION ADMINISTERED AT THIS TIME WITH SCHEDULED MORNING MEDICATIONS. PT HAS DISCHARGE ORDERS TO BE DISCHARGED TODAY. PT ON SPECIALTY MATRESS WITH BOOTS ON. AT BEDSIDE. FALL PRECAUTIONS AND CONTACT PRECAUTIONS IN PLACE, NO FURTHER NEEDS AT THIS TIME.
--- NOTE | 2023-11-09 10:04 | NUR ---
Reviewed documentation completed by WAGNER Goel. Cap change to rt PICC line completed and Daily assessment.
[2023-11-09] MEDS ORDERED: Potassium Bicarbonate/Citrate 20 MEQ Effervescent TAB PO SCH (10:15)
--- NOTE | 2023-11-09 12:15 | NUR ---
DISCHARGE ORDERS RECIEVED. PT TO TRANSFER TO [facility] [place] BY EMS. BEDSIDE HANDOFF REPORT PROVIDED TO EMS. AT BEDSIDE. NO FURTHER NEEDS AT THIS TIME. PT DISCHARGED WITH EMS BY [facility].
--- NOTE | 2023-11-09 17:32 | NUR ---
Qc Chemist confirmed with [facility] that they will peanut picker patient at noon. OZZY met with patient and his , Skye to provide update. OZZY also contacted patient's daughter, Lisette and left a message. ZOZY provided report numbers to Hospitalist and RN. OZZY faxed discharge orders and notified Jama at [facility]. Discharge Plan: [facility]
== END 2023-11-09 12:15 | DRG 870 ==
LOC: ICU 17:42 → MEDICAL 11-07 13:37
PROVIDERS: Hospitalist; Internal Medicine; Internal Medicine Pulmonary Disease; Internal Medicine Sleep Medicine; Nurse Practitioner Family; ADMIT Internal Medicine
PROC: 0BH17EZ Insertion of Endotracheal Airway into Trachea, Via Natural or Artificial Opening (ICD-10-PCS; principal; 2023-10-31)
PROC: 5A1955Z Respiratory Ventilation, Greater than 96 Consecutive Hours (ICD-10-PCS; 2023-10-31)
PROC: 02HV33Z Insertion of Infusion Device into Superior Vena Cava, Percutaneous Approach (ICD-10-PCS; 2023-11-01)
PROC: 0BD98ZX Extraction of Lingula Bronchus, Via Natural or Artificial Opening Endoscopic, Diagnostic (ICD-10-PCS; 2023-11-02)
PROC: 0BDD8ZX Extraction of Right Middle Lung Lobe, Via Natural or Artificial Opening Endoscopic, Diagnostic (ICD-10-PCS; 2023-11-02)
PROC: 0BDF8ZX Extraction of Right Lower Lung Lobe, Via Natural or Artificial Opening Endoscopic, Diagnostic (ICD-10-PCS; 2023-11-02)
PROC: 0BDJ8ZX Extraction of Left Lower Lung Lobe, Via Natural or Artificial Opening Endoscopic, Diagnostic (ICD-10-PCS; 2023-11-02)
PROC: 5A09457 Assistance with Respiratory Ventilation, 24-96 Consecutive Hours, Continuous Positive Airway Pressure (ICD-10-PCS; 2023-11-06)
DX: A41.9 Sepsis, unspecified organism (principal); I50.21 Acute systolic (congestive) heart failure; J18.1 Lobar pneumonia, unspecified organism; L89.154 Pressure ulcer of sacral region, stage 4; J96.01 Acute respiratory failure with hypoxia; R65.21 Severe sepsis with septic shock; E87.20 Acidosis, unspecified; E44.0 Moderate protein-calorie malnutrition; N17.9 Acute kidney failure, unspecified; I42.9 Cardiomyopathy, unspecified; R04.2 Hemoptysis; E87.1 Hypo-osmolality and hyponatremia; E87.0 Hyperosmolality and hypernatremia; R04.89 Hemorrhage from other sites in respiratory passages; I13.0 Hypertensive heart and chronic kidney disease with heart failure and stage 1 through stage 4 chronic kidney disease, or unspecified chronic kidney disease; I47.10 Supraventricular tachycardia, unspecified; Z68.1 Body mass index [BMI] 19.9 or less, adult; Z51.5 Encounter for palliative care; Z66 Do not resuscitate; E86.0 Dehydration; N18.9 Chronic kidney disease, unspecified; I73.9 Peripheral vascular disease, unspecified; E05.00 Thyrotoxicosis with diffuse goiter without thyrotoxic crisis or storm; F10.10 Alcohol abuse, uncomplicated; G62.9 Polyneuropathy, unspecified; F32.A Depression, unspecified; I95.9 Hypotension, unspecified; I08.1 Rheumatic disorders of both mitral and tricuspid valves; K31.84 Gastroparesis; E78.5 Hyperlipidemia, unspecified; E03.9 Hypothyroidism, unspecified; E83.42 Hypomagnesemia; I27.20 Pulmonary hypertension, unspecified; R73.9 Hyperglycemia, unspecified; I48.0 Paroxysmal atrial fibrillation; E87.70 Fluid overload, unspecified; E87.6 Hypokalemia; D53.9 Nutritional anemia, unspecified; M19.90 Unspecified osteoarthritis, unspecified site; R31.9 Hematuria, unspecified; F17.210 Nicotine dependence, cigarettes, uncomplicated; Z79.01 Long term (current) use of anticoagulants; Z85.528 Personal history of other malignant neoplasm of kidney; Z90.5 Acquired absence of kidney; Z86.718 Personal history of other venous thrombosis and embolism; Z90.49 Acquired absence of other specified parts of digestive tract; Z79.899 Other long term (current) drug therapy
CPT/HCPCS: C1751; J1170; J1815; J1940; J2060; J2270; J2543; J2704; J2919; J3010; J3475; J3480; J7050; J7060; J7120; J7512